=== PATIENT | female | born 1945 | race Caucasian/White ===

== ENCOUNTER 2021-02-26 13:42 | Emergency (ER) | payer OTHER ==
--- OUTSIDE RECORDS SUMMARY | 2021-02-26 13:47 | XMS REPORT | Continuity of Care Document ---
:1945 [facility] Organization [facility] t Address [address] [place] [address] [address]. [address] [place] [address] Care Team Providers Name Role Phone Diane Arzola Primary Care Physician Pradeep LANE, L Attending Clinician Unavailable Augusta Zavala Attending Clinician Teodoro Mosher MD, J Attending Clinician Rishabh Cotter MD Attending Clinician Kofi SANTIAGO Attending Clinician Uzair SANTIAGO P Attending Clinician KOFI Attending Clinician Unavailable MARIELY Attending Clinician Unavailable Kofi SANTIAGO Admitting Clinician KOFI Admitting Clinician Unavailable Payers Payer Name Policy Type Policy Number Effective Date Expiration Date S ource Problems Condition Condition Condition Status Onset Resolution Last Treating Co mments Source Name Details Category Date Date Treatment Clinician Date Hypertensi Hypertensi Disease Active 2020-02 U nivers ve ve 04-17 [place] encephal[place]op [place] at[place] 00 Medical Branch Allergies, Adverse Reactions, Alerts Allergy Allergy Status Severity Reaction(s) Onset Inactive Treating Comm ents Source Name Type Date Date Clinician CLONIDIN DRUG Active High Other-Cmnt 2020-02 Univ ers E INGREDI 04-17 ity of 00:00: [place] 00 Medical Branch Clonidin Propensi Active Other - See 2020-02 Severe U nivers e ty to comments 04-17 drowsines ity o f adverse 00:00: s, [place] reaction 00 previous Medica l s to cardiolog Branch drug ist d/c medicatio n Aspirin Propensi Active Swelling 2020-02 Unive rs ty to 2 ity of adverse 00:00: [place] reaction 00 Medical s Branch ASPIRIN DRUG Active Swelling 2020-02 Univers INGREDI 2- ity of 00:00: [place] 00 Medical Branch NO KNOWN Drug Active Univers ALLERGIE Class ity of S [place] [facility] [place] Social History Social Habit Start Date Stop Date Quantity Comments Source History SDOH University o f Alcohol Frequency [facility] [place] edical Branch History SDOH University o f Alcohol Std [place] [facility] Drinks Branch History SDHI University o f Alcohol Binge [place] [facility] al Branch Exposure to Not sure [facility] SARS-CoV-2 [facility] (event) Branch Tobacco use and 2021-02-14 2021-02-14 Never used Universit y of exposure 00:00:00 00:00:00 [facility] Alcohol intake 2021-02-14 2021-02-14 Ex-drinker University of 00:00:00 00:00:00 (finding) [facility] Alcohol Comment 2021-02-14 2021-02-14 Last drink Universit y of 00:00:00 00:00:00 several years [facility] al ago Branch Sex [birth year] Universit y of 00:00:00 00:00:00 [facility] Smoking Status Start Date Stop Date Source Never smoker [facility] Medications Ordered Filled Start Stop Current Ordering Indication Dosage Frequency Signature Comments Components Source Medication Medication Date Date Medication? Clinician (SIG) Name Name amLODIPine 2020-02- Yes [id number] 10mg Take 1 Univers 10 mg 2-30 -30 tablet by ity of tablet 00:00: 05:59 mouth [place] 00 :00 daily for Medical 30 days. Branch chlorthalid 2020-02- Yes [id number] 25mg Take 1 Univers one 25 mg 2-30 -30 tablet by ity of tablet 00:00: 05:59 mouth [place] 00 :00 daily for Medical 30 days. Branch losartan 50 2020-02- Yes [id number] 50mg Take 1 Univers mg tablet 2-30 -30 tablet by ity of 00:00: 05:59 mouth [place] 00 :00 daily for Medical 30 days. Branch amLODIPine 2020-02- Yes [id number] 10mg Take 1 Univers 10 mg 2-30 -30 tablet by ity of tablet 00:00: 05:59 mouth [place] 00 :00 daily for Medical 30 days. Branch chlorthalid 2020-02- Yes [id number] 25mg Take 1 Univers one 25 mg 2-30 -30 tablet by ity of tablet 00:00: 05:59 mouth [place] 00 :00 daily for Medical 30 days. Branch losartan 50 2020-02- Yes [id number] 50mg Take 1 Univers mg tablet 2-25 03- tablet by ity of 00:00: 05:59 mouth [place] 00 :00 daily for Medical 30 days. Branch cetirizine 2020-02- Yes [id number] 10mg Take 1 Univers 10 mg 2-30 - tablet by ity of tablet 00:00: 05:59 mouth [place] 00 :00 daily for Medical 14 days. Branch cetirizine 2020-02- Yes [id number] 10mg Take 1 Univers 10 mg 2-25 03- tablet by ity of tablet 00:00: 05:59 mouth [place] 00 :00 daily for Medical 14 days. Branch allopurinoL 2020-02 Yes 300mg Take 300 U nivers 300 mg 2-29 mg by ity of tablet 18:40: mouth [place] 30 daily. Medical Branch glimepiride 2020-02 Yes 2mg Take 2 mg U nivers 2 mg tablet 2-29 by mouth 2 it y of 18:40: (two) [place] 30 times Medical daily. Branch carvediloL 2020-02 Yes 25mg Take 25 mg U nivers (COREG) 25 2-29 by mouth 2 ity of mg tablet 18:40: (two) [place] 30 times Medical daily with Branch meals. atorvastati 2020-02 Yes 10mg Take 10 mg Univers n 10 mg 2-29 by mouth ity of tablet 18:40: at [place] 30 bedtime. Medical Branch hydrALAZINE 2020-02 Yes 100mg Take 100 U nivers 100 mg 2-29 mg by ity of tablet 18:40: mouth [place] 30 every 8 Medical (eight) Branch hours. allopurinoL 2020-02 Yes 300mg Take 300 U nivers 300 mg 2-29 mg by ity of tablet 18:40: mouth [place] 30 daily. Medical Branch glimepiride 2020-02 Yes 2mg Take 2 mg U nivers 2 mg tablet 2-29 by mouth 2 it y of 18:40: (two) [place] 30 times Medical daily. Branch carvediloL 2020-02 Yes 25mg Take 25 mg U nivers (COREG) 25 2-29 by mouth 2 ity of mg tablet 18:40: (two) [place] 30 times Medical daily with Branch meals. atorvastati 2020-02 Yes 10mg Take 10 mg Univers n 10 mg 2-29 by mouth ity of tablet 18:40: at [place] 30 bedtime. Medical Branch hydrALAZINE 2020-02 Yes 100mg Take 100 U nivers 100 mg 2-29 mg by ity of tablet 18:40: mouth [place] 30 every 8 Medical (eight) Branch hours. pregabalin 2020-02- No 300mg Take 300 U nivers 300 mg 2-29 12-29 mg by ity of capsule 15:22: 00:00 mouth at [place] 08 :00 bedtime. Medical Branch azilsartan 2020-02- No 1{tbl} Take 1 Un john med-chlorth 2-29 12-29 tablet by it y of alidone 15:22: 00:00 mouth [place] (EDARBYCLOR 08 :00 daily. Medica l ) 40-25 mg Branch Tab labetaloL 2020-02- No 100mg Take 100 Un john 100 mg 2-29 12-29 mg by ity of tablet 15:22: 00:00 mouth [place] 08 :00 every Medical morning. Branch labetaloL 2020-02- No 200mg Take 200 Un john 100 mg 2-29 12-29 mg by ity of tablet 15:22: 00:00 mouth at [place] 08 :00 bedtime. Medical Branch traMADoL 50 2020-02- No 100mg Take 100 Univers mg tablet 2-29 12-29 mg by ity of 15:22: 00:00 mouth 3 [place] 08 :00 (three) Medical times Branch daily as needed for Pain (scale 7-10). olmesartan- 2020-02- No 1{tbl} Take 1 U nivers hydrochloro 2-29 12-29 tablet by it y of thiazide 15:22: 00:00 mouth [place] 40-12.5 mg 08 :00 daily. Medical per tablet Branch doxazosin 4 2020-02- No 4mg Take 4 mg Univers mg tablet -21 02- by mouth ity o f 15:22: 00:00 at [place] 08 :00 bedtime. Medical Branch losartan 2020-02 Yes 50mg 50 mg, Univers (COZAAR) 2- Oral, ity of tablet 50 15:00: DAILY, [place] mg 00 First dose Medical (after Branch last modificati on) on Fri02/21/21 at 0900, Until Discontinu ed, Routine dextrometho 2020-02 Yes [id number] 5mL Take 5 mL Univers rphan-guaif 2-29 by mouth ity of enesin 00:00: every 6 [place] 10-100 mg/5 00 (six) Medical mL solution hours as Bran ch needed for Cough. pregabalin 2020-02 Yes 150mg Take 1 Univ ers 150 mg 2- capsule by ity of capsule 00:00: mouth [place] 00 every 24 Medical (twenty-fo Branch ur) hours. traMADoL 50 2020-02 Yes 50mg Take 1 Univ ers mg tablet 2-29 tablet by ity o f 00:00: mouth [place] 00 every 12 Medical (twelve) Branch hours as needed for Pain (scale 4-6) or Pain (scale 7-10). dextrometho 2020-02 Yes [id number] 5mL Take 5 mL Univers rphan-guaif -29 by mouth ity of enesin 00:00: every 6 [place] 10-100 mg/5 00 (six) Medical mL solution hours as Bran ch needed for Cough. pregabalin 2020-02 Yes 150mg Take 1 Univ ers 150 mg 2-29 capsule by ity of capsule 00:00: mouth [place] 00 every 24 Medical (twenty-fo Branch ur) hours. traMADoL 50 2020-02 Yes 50mg Take 1 Univ ers mg tablet 2-29 tablet by ity o f 00:00: mouth [place] 00 every 12 Medical (twelve) Branch hours as needed for Pain (scale 4-6) or Pain (scale 7-10). benzocaine- 2020-02- Yes [id number] 1{lozen Take 1 Univers menthoL 2-03-04 ge} Lozenge by ity o f lozenge 00:00: 05:59 mouth [place] 00 :00 every 4 Medical (four) Branch hours for 10 days. albuterol 2020-02- Yes [id number] 2{puff} Inhale 2 Univers 90 - Puffs ity of mcg/actuati 00:00: 05:59 every 6 [place] inhaler 00 :00 (six) Medical hours as Branch needed for Wheezing or Shortness of Breath for up to 10 days. benzocaine- 2020-02- Yes [id number] 1{lozen Take 1 Univers menthoL - ge} Lozenge by ity o f lozenge 00:00: 05:59 mouth [place] 00 :00 every 4 Medical (four) Branch hours for 10 days. albuterol 2020-02- Yes [id number] 2{puff} Inhale 2 [facility] 90 - Puffs ity of mcg/actuati 00:00: 05:59 every 6 [place] inhaler 00 :00 (six) Medical hours as Branch needed for Wheezing or Shortness of Breath for up to 10 days. losartan 2020-02- No 25mg 25 mg, Univer s (COZAAR) 04-23- Oral, ity of tablet 25 16:00: 23:13 DAILY, [place] mg 00 :34 First dose Medical on Fri02/20/21 at 1000, Until Discontinu ed, Routine benzocaine- 2020-02 Yes 1{lozen 1 Lozenge, Univers menthoL 04-22 ge} Oral, Q4H, ity of (CEPACOL 15:00: First dose [place] as SORE THROAT 00 (after Medica l (PACO-MEN)) last Branch lozenge 1 modificati Lozenge on) on Fri02/19/21 at 0900, Until Discontinu ed, Routine chlorthalid 2020-02 Yes 25mg 25 mg, Univ ers one 04-22 Oral, ity of (HYGROTON) 15:00: DAILY, [place] tablet 25 00 First dose Medi kary mg (after Branch last modificati on) on Fri02/19/21 at 0900, Until Discontinu ed, Routine losartan 2020-02 No 50mg 50 mg, Univer s (COZAAR) 202-19 Oral, ity of tablet 50 15:00: 15:09 DAILY, [place] mg 00 :38 First dose Medical (after Branch last modificati on) on Fri02/19/21 at 0900, Until Discontinu ed, Routine benzonatate 2020-02 Yes 100mg 100 mg, Un john (TESSALON 2-26 Oral, Q8H, ity of PERLES) 20:00: First dose [place] capsule 100 00 on [facility] Medica l mg 02/18/21 Branch at 1400, Until Discontinu ed, Routine lactated 2020-02- No 500mL at 75 Univer s ringers IV 04-21 mL/hr, 500 it y of infusion 20:00: 12:43 mL, IV [place] 500 mL 00 :32 Infusion, Medical CONTINUOUS Branch , Starting on [facility] 02/18/21 at 1400, Until Fri02/19/21 at 0643, Routine cetirizine 2020-02 Yes 10mg 10 mg, Unive rs (ZYRTEC) 04-21 Oral, ity of tablet 10 19:00: DAILY, [place] mg 00 First dose Medical on [facility] 02/18/21 at 1300, Until Discontinu ed, Routine guaiFENesin 2020-02 Yes 400mg 400 mg, Un john (FENESIN 2- Oral, Q4H, ity o f IR) tablet 18:00: First dose [place] 400 mg 00 on [facility] Medical 02/18/21 Branch at 1200, Until Discontinu ed, Routine ipratropium 2020-02 Yes 3mL 3 mL, Unive rs -albuteroL 04-21 Inhalation ity of (DUONEB) 18:00: , QID, [place] 0.5 mg-3 00 First dose Medic al mg(2.5 mg on [facility] base)/3 mL 02/18/21 nebulizer at 1200, solution 3 Until mL Discontinu ed, Routine benzocaine- 2020-02- No 1{lozen 1 Lozenge, Univers menthoL 04-21 ge} Oral, ity of (CEPACOL 16:29: 14:57 Q4HPRN, [place] SORE THROAT 48 :34 Starting Medi kary (PACO-MEN)) on [facility] lozenge 1 02/18/21 Lozenge at 1029, Until 02/19/21 at 0857, Routine, Sore throat traMADoL 2020-02 Yes 50mg 50 mg, Univers (ULTRAM) 2-25 Oral, ity of tablet 50 14:44: [id number], [place] mg 35 Starting Medical on Fri Branch 02/17/21 at 0844, Until Discontinu ed, Routine, Pain (scale 4-6), Pain (scale 7-10) traMADoL 2020-02 No 50mg 50 mg, Univer s (ULTRAM) 2- 12- Oral, ity of tablet 50 04:15: 04:25 ONCE, 1 [place] mg 00 :00 dose, On Medical Fri Branch 02/16/21 at 2215, Routine pregabalin 2020-02 Yes 150mg 150 mg, Uni vers (LYRICA) 2-25 Oral, Q24H ity o f capsule 150 03:15: ABX, First [place] mg 00 dose Medical (after Branch last modificati on) on Fri02/16/21 at 2115, Until Discontinu ed, Routine metoclopram 2020-02 Yes 10mg 10 mg, IV U nivers naren HCl 04-20 Piggyback, ity of (REGLAN) 10 02:12: Q6HPRN, [place] mg in NaCl 19 Starting Medic al 0.9% (NS) on Fri Branch piggyback 02/16/21 at 2011, Until Discontinu ed, 50 mL hydrALAZINE 2020-02 Yes 50mg 50 mg, Univ ers (APRESOLINE 2-25 Oral, ity of ) tablet 50 02:11: Q6HPRN, [place] mg 42 Starting Medical on Fri Branch 02/16/21 at 2011, Until Discontinu ed, Routine, SBP>180, DBP >110 amLODIPine 2020-02 Yes 10mg 10 mg, Unive rs (NORVASC) 2-24 Oral, ity of tablet 10 20:15: DAILY, [place] mg 00 First dose Medical on Fri Branch 02/16/21 at 1415, Until Discontinu ed, Routine chlorthalid 2020-02 No 25mg 25 mg, Uni vers one 2-24 12- Oral, ity of (HYGROTON) 15:00: 13:50 DAILY, [place] tablet 25 00 :26 First dose Medi kary mg on Fri Branch 02/16/21 at 0900, Until Discontinu ed, Routine losartan 2020-02 No 50mg 50 mg, Univer s (COZAAR) 2-24 12-24 Oral, ity of tablet 50 15:00: 20:07 DAILY, [place] mg 00 :04 First dose Medical on Fri Branch 02/16/21 at 0900, Until Discontinu ed, Routine lactulose 2020-02 Yes 30mL 30 mL, Univer s (CEPHULAC) 2-24 Oral, ity of solution 30 13:36: BIDPRN, [place] mL 15 Starting Medical on Fri Branch 02/16/21 at 0736, Until Discontinu ed, Routine, Constipati on hydrALAZINE 2020-02 No 50mg 50 mg, Uni vers (APRESOLINE 2-24 - Oral, ity of ) tablet 50 05:34: 02:13 Q6HPRN, [place] mg 34 :10 Starting Medical on Fri Branch 02/15/21 at 2334, Until Fri02/16/21 at 2013, Routine, SBP>200 , DBP >100 ondansetron 2020-02 Yes 4mg 4 mg, Slow Univers (ZOFRAN 2-24 IV Push, ity of (PF)) 05:00: Q6HPRN, [place] injection 4 26 Starting Medi kary mg on [facility] Branch 02/15/21 at 2300, Until Discontinu ed, Routine, Nausea and Vomiting (N/V) hydrALAZINE 2020-02 Yes 100mg 100 mg, Un john (APRESOLINE 2-24 Oral, Q8H, it y of ) tablet 04:00: First dose [place] 100 mg 00 on [facility] Medical 02/15/21 Branch at 2200, Until Discontinu ed, Routine sennosides- 2020-02 Yes 1{tbl} 1 tablet, Univers docusate 2- Oral, ity of sodium 15:00: DAILY, [place] (SENOKOT-S) 00 First dose Me dical 8.6-50 mg on [facility] Branch per tablet 02/15/21 1 tablet at 0900, Until Discontinu ed, Routine polyethylen 2020-02 Yes 17g 17 g, Unive rs e glycol 2-23 Oral, ity of 3350 powder 15:00: DAILY, [place] 17 g 00 First dose Medical on [place] Branch 02/15/21 at 0900, Until Discontinu ed, Routine melatonin 2020-02 Yes 6mg 6 mg, Univers (MELATIN) 2-23 Oral, QHS, ity of tablet 6 mg 10:30: First dose [place] 00 on [facility] 02/15/21 Branch at 0430, Until Discontinu ed, Routine atorvastati 2020-02 Yes 10mg 10 mg, Univ ers n (LIPITOR) 2-23 Oral, QHS, it y of tablet 10 03:00: First dose [place] mg 00 on Fri [facility] 02/14/21 Branch at 2100, Until Discontinu ed, Routine carvediloL 2020-02 Yes 25mg 25 mg, Unive rs (COREG) 2- Oral, BID ity of tablet 25 23:45: MEALS, [place] mg 00 First dose Medical on Fri Branch 02/14/21 at 1745, Until Discontinu ed, Routine sulfur 2020-02- No [id number] 5mL 5 mL, Univ ers hexafluorid -02-14 Intravenou i ty of e microsphr 16:15: 16:15 s, ONCE, 1 [place] (LUMASON) 00 :00 dose, On Medica l injection 5 Fri [facility] 02/14/21 at 1015, Routine
wireless team member approving Restricted medication : SHIRLENE OWENS Saline 2020-02 Yes [id number] 6mL 6 mL, Unive rs Bubble 2- Injection, ity of Study 16:06: SEE-INSTRU [place] [facility] Starting Branch on Fri02/14/21 at 1006, Until Discontinu ed, Routine Saline 2020-02 Yes [id number] 6mL 6 mL, Unive rs Bubble 2- Injection, ity of Study 16:05: SEE-INSTRU [place] 57 CTIONS, Medical Starting Branch on Fri02/14/21 at 1005, Until Discontinu ed, Routine allopurinoL 2020-02 Yes 300mg 300 mg, Un john (ZYLOPRIM) 2-22 Oral, ity of tablet 300 15:00: DAILY, [place] mg 00 First dose Medical on [facility] Branch 02/14/21 at 0900, Until Discontinu ed, Routine chlorthalid 2020-02- No 25mg 25 mg, Uni vers one 04-17 Oral, ity of (HYGROTON) 15:00: 00:14 DAILY, [place] tablet 25 00 :42 First dose Medi kary mg on Fri Branch 02/14/21 at 0900, Until Discontinu ed, Routine Sliding 2020-02 Yes Subcutaneo Univ ers Scale - us, TID ity of Insulin - 14:00: MEALS+HS, [place] Lispro 00 First dose Medical (HumaLOG) + on Fri Branch Fsbg 02/14/21 Testing at 0800, Until Discontinu ed, Routine heparin 2020-02 Yes 5000U 5,000 Univers (porcine) 04-17 Units, ity of injection 14:00: Subcutaneo [place] 5,000 Units 00 us, Q12H, Med ical First dose Branch on Fri02/14/21 at 0800, Until Discontinu ed, Routine glucagon 2020-02 Yes 1mg 1 mg, Univers (GLUCAGEN 04-17 Intramuscu ity of DIAGNOSTIC 10:50: lar, PRN, [place] KIT) 25 Starting Medical injection 1 on Fri Branch mg 02/14/21 at 0450, Until Discontinu ed, TULIO, Blood Glucose < or = 70 mg/dL and patient is unable to swallow or has mental changes. dextrose 50 2020-02 Yes 25mL 25 mL, Univ ers % in water 04-17 Slow IV ity of (D50W) 10:50: Push, PRN, [place] injection 25 Starting Medica l 25 mL on Fri Branch 02/14/21 at 0450, Until Discontinu ed, TULIO, Blood Glucose < or = 70 mg/dL and patient is unable to swallow or has mental status changes. magnesium 2020-02- No 2g 2 g, IV Univ ers sulfate in 04-17 Piggyback, it y of water 2 05:45: 06:21 ONCE, 1 [place] gram/50 mL 00 :00 dose, On Medic al (4 %) Tue Branch infusion 2 02/13/21 g at 2345, Routine levoFLOXaci 2020-02- No 750mg 750 mg, IV Univers n in D5W 04-17 Piggyback, ity of (LEVAQUIN) 05:30: 06:15 ONCE, 1 [place] 750 mg/150 00 :00 dose, On Medic al mL Fri Piggyback 02/13/21 750 mg at 2330, Administer over 90 Minutes, 150 mL
Reas on for Anti-Infec tive: Documented Infection< br>Documen tu Infection Site: Urine<br&g t;Duration of Therapy: Other (see Comments) niCARdipine 2020-02- No 5mg/h 5 mg/hr U nivers (CARDENE 04-17 (25 ity of I.V.) 40 mg 04:37: 23:39 mL/hr), IV [place] in NaCL 200 15 :45 Infusion, Med ical mL (RTU) TITRATE, Branch infusion SBP Goal < 180 mmHg, Starting on Fri02/13/21 at 2237
In itiate infusion at 2.5 mg/hr.&nbs p; Ti trate by 2.5 mg/hr every 5 minutes to 15 minutes as needed to achieve and maintain goal blood pressure. Maximum dose = 15 mg/hr. If goal not maintained at maximum allowed dose, contact prescriber .
hydralAZINE 2020-02 No 10mg 10 mg, Uni vers (APRESOLINE 04-17 Slow IV ity of ) injection 03:15: 02:25 [place], [place] 10 mg 00 :00 ONCE, 1 Medical dose, On Branch Fri02/13/21 at 2115, TULIO
In dication: Hypertensi ve Emergency Vital Signs Vital Name Observation Time Observation Value Comments Source Systolic blood 2021-02-21 22:16:00 158 mm[Hg] Univer sity of pressure [facility] Diastolic blood 2021-02-21 22:16:00 71 mm[facility]Hg[facility] Heart rate 2021-02-21 22:16:00 55 /min [facility] Body temperature 2021-02-21 22:16:[address] [facility] Respiratory rate 2021-02-21 22:16:00 21 /min [facility] Oxygen saturation in 2021-02-21 22:16:00 97 /min University Arterial blood by [facility] Pulse oximetry [place] Body height 2021-02-14 01:09:00 170.2 cm [facility] Body weight 2021-02-14 01:09:00 98.884 kg [facility] BMI 2021-02-14 01:09:00 34.14 kg/m2 [facility] Procedures Procedure Date / Time Performing Clinician Source Performed POCT GLUCOSE (AUTOMATED) 2021-02-21 18:42:00 Adelia Kirby [facility] POCT GLUCOSE (AUTOMATED) 2021-02-21 14:03:00 Adelia Kirby [facility] MAGNESIUM 2021-02-21 10:31:00 Lm [facility] BASIC METABOLIC PANEL 2021-02-21 10:31:00 Shahzad Amato [facility] (NA, K, CL, CO2, GLUCOSE, Medica l Branch BUN, CREATININE, CA) CBC WITH DIFF 2021-02-21 10:31:00 Shahzad Amato [facility] POCT GLUCOSE (AUTOMATED) 2021-02-21 04:44:00 [facility] PO[facility] GLUCOSE (AUTOMATED) 2021-02-21 01:48:00 [facility] POCT GLUCOSE (AUTOMATED) 2021-02-20 23:16:00 [facility] POCT GLUCOSE (AUTOMATED) 2021-02-20 18:42:00 Adelia Kirby [facility] SPUTUM CULTURE 2021-02-20 15:34:00 [facility] POCT GLUCOSE (AUTOMATED) 2021-02-20 13:48:00 Adelia Kirby [facility] MAGNESIUM 2021-02-20 12:17:00 Shahzad Amato [facility] BASIC METABOLIC PANEL 2021-02-20 12:17:00 Shahzad Amato [facility] (NA, K, CL, CO2, GLUCOSE, Medica l Branch BUN, CREATININE, CA) CBC WITH DIFF 2021-02-20 12:17:00 Shahzad Amato [facility] POCT GLUCOSE (AUTOMATED) 2021-02-20 03:08:00 Kofi Adelia Macy [facility] POCT GLUCOSE (AUTOMATED) 2021-02-19 23:54:00 TiffanydonnaAdelia [facility] POCT GLUCOSE (AUTOMATED) 2021-02-19 18:07:00 [facility] 2021-02-19 14:32:00 Adelia Kirby [facility] MAGNESIUM 2021-02-19 12:22:00 Shahzad Amato [facility] BASIC METABOLIC PANEL 2021-02-19 12:22:00 Shahzad Amato [facility] (NA, K, CL, CO2, GLUCOSE, Medica l Branch BUN, CREATININE, CA) CBC WITH DIFF 2021-02-19 12:22:00 Shahzad Amato [facility] POCT GLUCOSE (AUTOMATED) 2021-02-19 03:20:00 Adelia Kirby [facility] POCT GLUCOSE (AUTOMATED) 2021-02-18 23:24:00 KofiAdelia [facility] POCT GLUCOSE (AUTOMATED) 2021-02-18 18:34:00 Adelia Kirby [facility] XR CHEST 1 VW 2021-02-18 17:26:00 Shahzad Amato [facility] BLOOD CULTURE SCREEN 2021-02-18 17:17:00 Shahzad Amato [facility] BASIC METABOLIC PANEL 2021-02-18 17:17:00 Nigel Mcdermott [facility] (NA, K, CL, CO2, GLUCOSE, Medica l Branch BUN, CREATININE, CA) CBC WITH DIFF 2021-02-18 17:17:00 Shahzad Amato [facility] PROCALCITONIN 2021-02-18 17:17:00 Kofi [facility] COVID-19 (ID NOW RAPID 2021-02-18 17:17:00 Shahzad Amato [facility] TESTING) Medical Branch LAB ONLY COVID 2021-02-18 17:17:00 Shahzad Amato [facility] BLOOD CULTURE SCREEN 2021-02-18 17:16:00 Shahzad Amato [facility] POCT GLUCOSE (AUTOMATED) 2021-02-18 15:38:00 Adelia Kirby [facility] GALV ONLY - INFLUENZA A B 2021-02-18 14:59:00 [facility] RESPIRATORY PANEL BY PCR 2021-02-18 14:59:00 [facility] GLUCOSE (AUTOMATED) 2021-02-18 13:47:00 [facility] PO[facility] GLUCOSE (AUTOMATED) 2021-02-18 02:29:00 [facility] PO[facility] GLUCOSE (AUTOMATED) 2021-02-17 23:33:00 Adelia Kirby Uni [facility] POCT GLUCOSE (AUTOMATED) 2021-02-17 17:54:00 Rony Cotter Un iversity [facility] POCT GLUCOSE (AUTOMATED) 2021-02-17 14:22:00 Rony Cotter Un iversity of [facility] MAGNESIUM 2021-02-17 11:23[facility]00 [facility] 2021-02-17 11:23:00 Nigel Mcdermott [facility] (NA, K, CL, CO2, GLUCOSE, Medica l Branch BUN, CREATININE, CA) POCT GLUCOSE (AUTOMATED) 2021-02-17 02:32:00 Rony Cotter Un iversity of [facility] POCT GLUCOSE (AUTOMATED) 2021-02-16 23:39:00 Rony Cotter Un iversity of [facility] POCT GLUCOSE (AUTOMATED) 2021-02-16 19:05:00 Rony Cotter Un iversity [facility] MR BRAIN WO CONTRAST 2021-02-16 16:10:45 Omar Leslie [facility] MAGNESIUM 2021-02-16 10:12:00 [facility] BASIC METABOLIC PANEL 2021-02-16 10:12:00 [facility] (NA, K, CL, CO2, GLUCOSE, Medica l Branch BUN, CREATININE, CA) CBC WITH DIFF 2021-02-16 10:12:00 Nigel [facility] N-TERMINAL PRO-BNP 2021-02-16 10:12:00 Adelia Kirby [facility] XR KUB 2021-02-16 06:52:00 BloodAmbrose pinzon [facility] POCT GLUCOSE (AUTOMATED) 2021-02-16 03:24:00 [facility] 2021-02-15 23:48:00 [facility] 2021-02-15 18:00:00 Kamari Dillard [facility] COVID-19 (ID NOW RAPID 2021-02-15 14:25:00 Betzy Harris [facility] TESTING) [facility] Branch LAB ONLY COVID 2021-02-15 14:25:00 Betzy Harris [facility] INTERPRETATION [facility] POCT GLUCOSE (AUTOMATED) 2021-02-15 13:37:00 Kamari Dillard [facility] MAGNESIUM 2021-02-15 10:07:00 Omar Leslie [facility] BASIC METABOLIC PANEL 2021-02-15 10:07:00 Omar Leslie [facility] (NA, K, CL, CO2, GLUCOSE, Medica l Branch BUN, CREATININE, CA) POCT GLUCOSE (AUTOMATED) 2021-02-15 03:11:00 Kamari Dillard [facility] US RENAL WITH DOPPLER 2021-02-14 22:30:00 Omar Leslie [facility] POCT GLUCOSE (AUTOMATED) 2021-02-14 22:02:00 Kamari Dillard [facility] CAROTID DUPLEX BILATERAL 2021-02-14 20:19:00 Omar Leslie [facility] - BY VASCULAR LAB [facility] POCT GLUCOSE (AUTOMATED) 2021-02-14 18:00:00 Kamari Dillard [facility] CREATININE, URINE RANDOM 2021-02-14 16:43:00 Omar Leslie [facility] UREA NITROGEN, URINE 2021-02-14 16:43:00 Omar Leslie [facility] SODIUM, URINE RANDOM 2021-02-14 16:43:00 Betzy Harris [facility] TRANSTHORACIC ECHO (TTE) 2021-02-14 16:05:40 Omar Leslie [facility] COMPLETE W/ CONTRAST Medical [facility] POCT GLUCOSE (AUTOMATED) 2021-02-14 13:37:00 Kamari Dillard [facility] BASIC METABOLIC PANEL 2021-02-14 09:37:00 Omar Leslie [facility] (NA, K, CL, CO2, GLUCOSE, Medica l Branch BUN, CREATININE, CA) LIPID PANEL ([id number])(TOTAL 2021-02-14 09:37:00 Omar Leslie [facility] CHOLESTEROL, [facility] TRIGLYCERIDES, HDL) INTACT PTH CALCIUM GROUP 2021-02-14 09:37:00 Omar Leslie [facility] MRSA / MSSA SCREEN BY 2021-02-14 09:37:00 Omar Leslie [facility] PCR, [facility] TROPONIN I 2021-02-14 05:19:00 Kamari Dillard [facility] CRITICAL CARE 2021-02-14 04:00:00 Kamari Dillard [facility] URINALYSIS 2021-02-14 02:43:00 Kamari Dillard [facility] URINE CULTURE 2021-02-14 02:43:[address] [facility] CT HEAD WO CONTRAST 2021-02-14 01:59:04 [facility] 2021-02-14 01:48:00 Kamari Dillard [facility] MAGNESIUM 2021-02-14 01:48:[address] [facility] TROPONIN I 2021-02-14 01:48:00 Kamari Dillard [facility] COMP. METABOLIC PANEL 2021-02-14 01:48:00 Kamari Dillard [facility] ([id number]) Medical Branch CBC WITH DIFF 2021-02-14 01:48:00 Kamari Dillard [facility] GLYCOSYLATED HEMOGLOBIN 2021-02-14 01:48:00 Omar Leslie [facility] (A1C) Medical Branch COVID-19 (ID NOW RAPID 2021-02-14 01:48:00 Kamari Dillard [facility] TESTING) Medical Branch LAB ONLY COVID 2021-02-14 01:48:00 Kamari Dillard [facility] INTERPRETATION [facility] AC PANEL 21 + LACTIC ACID 2021-02-14 01:46:00 [facility] VW 2021-02-14 01:41:24 Kamari Dillard [facility] BLOOD CULTURE SCREEN 2021-02-14 01:30:00 Kamari Dillard [facility] HB ECG ROUTINE & RHYTHM 2021-02-14 01:15:17 Kamari Dillard [facility] Branch POCT GLUCOSE (AUTOMATED) 2021-02-14 01:11:00 Doctor Jonathon, [facility] Name [facility] NOTICE OF PRIVACY 2021-02-14 00:59:41 Doctor Jonathon [facility] PRACTICES [facility] [place] CONSENT/REFUSAL FOR 2021-02-14 00:59:06 Doctor Jonathon [facility] DIAGNOSIS AND TREATMENT [facility] HOSPITAL ADMISSION 2021-02-13 06:01:00 Doctor Jonathon [facility] Name Medical [place] Encounters Start End Encounter Admission Attending Care Care Encounter Source Date/Time Date/Time Type Type Clinicians Facility Department ID 2021-02-22 2021-02-22 Transition AMY Fernández [id number] 00:00:00 00:00:00 of Care Jaycee COLON [id number] i ty of ADRIA 4.2.7.2.686 Maged leone [id number] [facility] [address] Branch 2021-02-13 2021-02-21 [facility] Kamari Dillard [id number] [facility] 19:16:00 17:30:00 Encounter Ezequiel Valerio 350.1.13. 10 ity [facility] 4.2.7.2. [address] [place] TiffanyJeffryil [id number] [facility] Uzair Sarkis P [address] [place] 2021-02-13 2021-02-21 Inpatient X [facility] [id number] [facility] 19:16:00 17:30:00 [facility] 2021-01-26 Outpatient [facility] [id number] [place] 00:00:00 00:00:00 LAURA Miner Method i st Results Test Description Test Time Test Comments Results Result Comments Source POCT GLUCOSE (AUTOMATED) 2021-02-21 18:43:55 Test Item Value Reference Range Interpretation Comme nts POCT GLU (test code = 5146107602) 227 mg/dL 70-110 H Lab Interpretation (test code = 66664-8) [facility] 14:05:18 Test Item Value Reference Range Interpretation Comments POCT GLU (test code = 2964879391) 159 mg/dL 70-110 H Lab Interpretation (test code = Abnormal 80154-8) [facility] 12:25:40 Test Item Value Reference Range Interpretation Comments MAGNESIUM (test code = 7382701186) 2.0 mg/dL 1.7-2.4 Lab Interpretation (test code = Normal 92461-5) [facility] (NA, K, CL, CO2, GLUCOSE, BUN, CREATININE, CA)2021-02-21 12:08:19 Test Item Value Reference Range Interpretation Comments NA (test code = 140 mmol/L 135-145 1273186442) K (test code = 4.6 mmol/L 3.5-5.0 5734598242) CL (test code = 110 mmol/L 98-108 H 5860345150) CO2 TOTAL (test code = 22 mmol/L 23-31 L 4044282246) AGAP (test code = 2-16 6264270318) BUN (test code = 67 mg/dL 7-23 H 0795431258) GLUCOSE (test code = 132 mg/dL 70-110 H 2294654158) CREATININE (test code = 2.36 mg/dL 0.50-1.04 H 9396106755) CALCIUM (test code = 8.8 mg/dL 8.6-10.6 2521383555) eGFR (test code = mL/min/1.73m2 5692516519) XAVIER (test code = XAVIER) Association of Glomerular Filtration Rate (GFR) and Staging of Kidney Disease* + --+ --+ ------+| GFR (mL/min/1.73 m2) ?| With Kidney Damage ?| ?Without Kidney Damage+ --------+ --------+ +| ?>90 ?| ?Stage one ?| ? Normal ?+ ---+ ---+ -------+| ?60-89 ?| ?Stage two ?| ? Decreased GFR ? + --+ --+ ------+| ?30-59 ?| ?Stage three ?| ? Stage three ? + --+ --+ ------+| ?15-29 ?| ?Stage four ? | ? Stage four ?+ ---+ ---+ -------+| ?<15 (or dialysis) ? ?| ?Stage five ? | ? Stage five ?+ ---+ ---+ -------+ *Each stage assumes the associated GFR level has been in effect for at least three months. ?Stages 1 to 5, with or without kidney disease, indicate chronic kidney disease. Notes: Determination of stages one and two (with eGFR >59mL/min/1.73 m2) requires estimation of kidney damage for at least three months as defined by structural or functional abnormalities of the kidney, manifested by either:Pathological abnormalities or Markers of kidney damage (including abnormalities in the composition of the blood or urine or abnormalities in imaging tests). Lab Interpretation Abnormal (test code = 46835-4) [facility] WITH [id number] 11:40:58 Test Item Value Reference Range Interpretation Comments WBC (test code = See_Comment [Automated 1290-2) message] The sy stem which generated this result transmitted reference range : 4.30 - 11.10 10*3/?L. The reference range was not used to interpret this result as normal/abnormal . RBC (test code = See_Comment [Automated 789-8) message] The sy stem which generated this result transmitted reference range : 3.93 - 5.25 10*6/?L. The reference range was not used to interpret this result as normal/abnormal . HGB (test code = 11.0 g/dL 11.6-15.0 L 718-7) HCT (test code = 34.4 % 35.7-45.2 L 4544-3) MCV (test code = 87.3 fL 80.6-95.5 787-2) MCH (test code = 27.9 pg 25.9-32.8 785-6) MCHC (test code = 32.0 g/dL 31.6-35.1 786-4) RDW-SD (test code = 49.1 fL 39.0-49.9 00304-0) RDW-CV (test code = 15.2 % 12.0-15.5 788-0) PLT (test code = See_Comment L [Automated 777-3) message] The sy stem which generated this result transmitted reference range : 166 - 358 10*3/ ?L. The reference r bill was not used to interpret this result as normal/abnormal . MPV (test code = 12.0 fL 9.5-12.9 38459-3) NRBC/100 WBC (test See_Comment [Automat ed code = 6173039839) message] The system which generated this result transmitted reference range : 0.0 - 10.0 /100 WBCs. The refer ence range was not u sed to interpret th is result as normal/abnormal . NRBC x10^3 (test code <0.01 See_Comment [Auto mated = 4704746075) message] The s ystem which generated this result transmitted reference range : 10*3/?L. The reference range was not used to interpret this result as normal/abnormal . GRAN MAT (NEUT) % 60.5 % (test code = 770-8) IMM GRAN % (test code 1.30 % = 0587081801) LYMPH % (test code = 19.2 % 736-9) MONO % (test code = 8.7 % 5905-5) EOS % (test code = 9.4 % 713-8) BASO % (test code = 0.9 % 706-2) GRAN MAT x10^3(ANC) 2.78 10*3/uL 1.88-7.09 (test code = 1952644541) IMM GRAN x10^3 (test 0.06 10*3/uL 0.00-0.06 code = 4027346596) LYMPH x10^3 (test code 0.88 10*3/uL 1.32-3.29 L = 731-0) MONO x10^3 (test code 0.40 10*3/uL 0.33-0.92 = 742-7) EOS x10^3 (test code = 0.43 10*3/uL 0.03-0.39 H 711-2) BASO x10^3 (test code 0.04 10*3/uL 0.01-0.07 = 704-7) GIANT PLATELETS (test Present See_Comment A [Auto mated code = 5908-9) message] The system which generated this result transmitted reference range : (none). The reference range was not used to interpret this result as normal/abnormal . Lab Interpretation Abnormal (test code = 86640-2) [facility] GLUCOSE (AUTOMATED)2021-02-21 04:45:18 Test Item Value Reference Range Interpretation Comments POCT GLU (test code = 5872864205) 143 mg/dL 70-110 H Lab Interpretation (test code = Abnormal 66232-5) [facility] GLUCOSE (AUTOMATED)2021-02-21 01:49:49 Test Item Value Reference Range Interpretation Comments POCT GLU (test code = 4721215740) 246 mg/dL 70-110 H Lab Interpretation (test code = Abnormal 23327-8) [facility] GLUCOSE (AUTOMATED)2021-02-20 23:17:01 Test Item Value Reference Range Interpretation Comments POCT GLU (test code = 2296605159) 204 mg/dL 70-110 H Lab Interpretation (test code = Abnormal 42690-5) [facility] GLUCOSE (AUTOMATED)2021-02-20 18:44:06 Test Item Value Reference Range Interpretation Comments POCT GLU (test code = 4569813493) 270 mg/dL 70-110 H Lab Interpretation (test code = Abnormal 67156-2) [facility]2021-02-20 13:51:26 Test Item Value Reference Range Interpretation Comments POCT GLU (test code = 5516184150) 165 mg/dL 70-110 H Lab Interpretation (test code = Abnormal 22085-0) [facility] METABOLIC PANEL (NA, K, CL, CO2, GLUCOSE, BUN, CREATININE, CA)2021-02-20 13:33:31 Test Item Value Reference Range Interpretation Comments NA (test code = 138 mmol/L 135-145 6739608477) K (test code = 4.2 mmol/L 3.5-5.0 7272444476) CL (test code = 109 mmol/L 98-108 H 0623302290) CO2 TOTAL (test code = 20 mmol/L 23-31 L 5823014418) AGAP (test code = 2-16 2458689255) BUN (test code = 71 mg/dL 7-23 H 5655082560) GLUCOSE (test code = 133 mg/dL 70-110 H 1354176984) CREATININE (test code = 2.58 mg/dL 0.50-1.04 H 2112988522) CALCIUM (test code = 8.8 mg/dL 8.6-10.6 2834597908) eGFR (test code = mL/min/1.73m2 3144241842) XAVIER (test code = XAVIER) Association of Glomerular Filtration Rate (GFR) and Staging of Kidney Disease* + --+ --+ ------+| GFR (mL/min/1.73 m2) ?| With Kidney Damage ?| ?Without Kidney Damage+ --------+ --------+ +| ?>90 ?| ?Stage one ?| ? Normal ?+ ---+ ---+ -------+| ?60-89 ?| ?Stage two ?| ? Decreased GFR ? + --+ --+ ------+| ?30-59 ?| ?Stage three ?| ? Stage three ? + --+ --+ ------+| ?15-29 ?| ?Stage four ? | ? Stage four ?+ ---+ ---+ -------+| ?<15 (or dialysis) ? ?| ?Stage five ? | ? Stage five ?+ ---+ ---+ -------+ *Each stage assumes the associated GFR level has been in effect for at least three months. ?Stages 1 to 5, with or without kidney disease, indicate chronic kidney disease. Notes: Determination of stages one and two (with eGFR >59mL/min/1.73 m2) requires estimation of kidney damage for at least three months as defined by structural or functional abnormalities of the kidney, manifested by either:Pathological abnormalities or Markers of kidney damage (including abnormalities in the composition of the blood or urine or abnormalities in imaging tests). Lab Interpretation Abnormal (test code = 86439-4) [facility] 13:33:31 Test Item Value Reference Range Interpretation Comments MAGNESIUM (test code = 9633172977) 2.0 mg/dL 1.7-2.4 Lab Interpretation (test code = Normal 13269-6) [facility] WITH [id number] 12:53:29 Test Item Value Reference Range Interpretation Comments WBC (test code = See_Comment [Automated 9490-2) message] The sy stem which generated this result transmitted reference range : 4.30 - 11.10 10*3/?L. The reference range was not used to interpret this result as normal/abnormal . RBC (test code = See_Comment [Automated 049-8) message] The sy stem which generated this result transmitted reference range : 3.93 - 5.25 10*6/?L. The reference range was not used to interpret this result as normal/abnormal . HGB (test code = 11.6 g/dL 11.6-15.0 718-7) HCT (test code = 37.1 % 35.7-45.2 4544-3) MCV (test code = 87.5 fL 80.6-95.5 787-2) MCH (test code = 27.4 pg 25.9-32.8 785-6) MCHC (test code = 31.3 g/dL 31.6-35.1 L 786-4) RDW-SD (test code = 49.0 fL 39.0-49.9 09886-6) RDW-CV (test code = 15.3 % 12.0-15.5 788-0) PLT (test code = See_Comment [Automated 777-3) message] The sy stem which generated this result transmitted reference range : 166 - 358 10*3/ ?L. The reference r bill was not used to interpret this result as normal/abnormal . MPV (test code = 12.1 fL 9.5-12.9 09011-9) NRBC/100 WBC (test See_Comment [Automat ed code = 1665919742) message] The system which generated this result transmitted reference range : 0.0 - 10.0 /100 WBCs. The refer ence range was not u sed to interpret th is result as normal/abnormal . NRBC x10^3 (test code <0.01 See_Comment [Auto mated = 3495771689) message] The s ystem which generated this result transmitted reference range : 10*3/?L. The reference range was not used to interpret this result as normal/abnormal . GRAN MAT (NEUT) % 64.3 % (test code = 770-8) IMM GRAN % (test code 0.60 % = 8025216357) LYMPH % (test code = 18.8 % 736-9) MONO % (test code = 8.0 % 5905-5) EOS % (test code = 7.7 % 713-8) BASO % (test code = 0.6 % 706-2) GRAN MAT x10^3(ANC) 4.02 10*3/uL 1.88-7.09 (test code = 7954947366) IMM GRAN x10^3 (test 0.04 10*3/uL 0.00-0.06 code = 8801853320) LYMPH x10^3 (test code 1.18 10*3/uL 1.32-3.29 L = 731-0) MONO x10^3 (test code 0.50 10*3/uL 0.33-0.92 = 742-7) EOS x10^3 (test code = 0.48 10*3/uL 0.03-0.39 H 711-2) BASO x10^3 (test code 0.04 10*3/uL 0.01-0.07 = 704-7) Lab Interpretation Abnormal (test code = 35757-7) [facility] GLUCOSE (AUTOMATED)2021-02-20 03:09:05 Test Item Value Reference Range Interpretation Comments POCT GLU (test code = 5486846977) 206 mg/dL 70-110 H Lab Interpretation (test code = Abnormal 03238-6) [facility] GLUCOSE (AUTOMATED)2021-02-19 23:55:29 Test Item Value Reference Range Interpretation Comments POCT GLU (test code = 8637985963) 155 mg/dL 70-110 H Lab Interpretation (test code = Abnormal 94488-7) [facility] GLUCOSE (AUTOMATED)2021-02-19 18:08:17 Test Item Value Reference Range Interpretation Comments POCT GLU (test code = 0736529397) 296 mg/dL 70-110 H Lab Interpretation (test code = Abnormal 29742-2) [facility] GLUCOSE (AUTOMATED)2021-02-19 14:33:11 Test Item Value Reference Range Interpretation Comments POCT GLU (test code = 3669709151) 164 mg/dL 70-110 H Lab Interpretation (test code = Abnormal 54487-3) [facility] METABOLIC PANEL (NA, K, CL, CO2, GLUCOSE, BUN, CREATININE, CA)2021-02-19 13:15:21 Test Item Value Reference Range Interpretation Comments NA (test code = 135 mmol/L 135-145 5508006855) K (test code = 4.2 mmol/L 3.5-5.0 3929965877) CL (test code = 105 mmol/L 98-108 9582443226) CO2 TOTAL (test code = 24 mmol/L 23-31 2124204331) AGAP (test code = 2-16 9496590483) BUN (test code = 70 mg/dL 7-23 H 8484069341) GLUCOSE (test code = 160 mg/dL 70-110 H 8349013356) CREATININE (test code = 2.81 mg/dL 0.50-1.04 H 6862704676) CALCIUM (test code = 8.9 mg/dL 8.6-10.6 7173582561) eGFR (test code = mL/min/1.73m2 6845169352) AXVIER (test code = XAVIER) Association of Glomerular Filtration Rate (GFR) and Staging of Kidney Disease* + --+ --+ ------+| GFR (mL/min/1.73 m2) ?| With Kidney Damage ?| ?Without Kidney Damage+ --------+ --------+ +| ?>90 ?| ?Stage one ?| ? Normal ?+ ---+ ---+ -------+| ?60-89 ?| ?Stage two ?| ? Decreased GFR ? + --+ --+ ------+| ?30-59 ?| ?Stage three ?| ? Stage three ? + --+ --+ ------+| ?15-29 ?| ?Stage four ? | ? Stage four ?+ ---+ ---+ -------+| ?<15 (or dialysis) ? ?| ?Stage five ? | ? Stage five ?+ ---+ ---+ -------+ *Each stage assumes the associated GFR level has been in effect for at least three months. ?Stages 1 to 5, with or without kidney disease, indicate chronic kidney disease. Notes: Determination of stages one and two (with eGFR >59mL/min/1.73 m2) requires estimation of kidney damage for at least three months as defined by structural or functional abnormalities of the kidney, manifested by either:Pathological abnormalities or Markers of kidney damage (including abnormalities in the composition of the blood or urine or abnormalities in imaging tests). Lab Interpretation Abnormal (test code = 92703-2) [facility] 13:15:21 Test Item Value Reference Range Interpretation Comments MAGNESIUM (test code = 5082856265) 1.8 mg/dL 1.7-2.4 Lab Interpretation (test code = Normal 07406-9) [facility] WITH [id number] 12:48:34 Test Item Value Reference Range Interpretation Comments WBC (test code = See_Comment [Automated 7130-2) message] The sy stem which generated this result transmitted reference range : 4.30 - 11.10 10*3/?L. The reference range was not used to interpret this result as normal/abnormal . RBC (test code = See_Comment [Automated 335-8) message] The sy stem which generated this result transmitted reference range : 3.93 - 5.25 10*6/?L. The reference range was not used to interpret this result as normal/abnormal . HGB (test code = 11.4 g/dL 11.6-15.0 L 718-7) HCT (test code = 35.1 % 35.7-45.2 L 4544-3) MCV (test code = 86.7 fL 80.6-95.5 787-2) MCH (test code = 28.1 pg 25.9-32.8 785-6) MCHC (test code = 32.5 g/dL 31.6-35.1 786-4) RDW-SD (test code = 48.4 fL 39.0-49.9 21303-4) RDW-CV (test code = 15.2 % 12.0-15.5 788-0) PLT (test code = See_Comment [Automated 777-3) message] The sy stem which generated this result transmitted reference range : 166 - 358 10*3/ ?L. The reference r bill was not used to interpret this result as normal/abnormal . MPV (test code = 12.1 fL 9.5-12.9 56134-7) NRBC/100 WBC (test See_Comment [Automat ed code = 5437560207) message] The system which generated this result transmitted reference range : 0.0 - 10.0 /100 WBCs. The refer ence range was not u sed to interpret th is result as normal/abnormal . NRBC x10^3 (test code <0.01 See_Comment [Auto mated = 5016856319) message] The s ystem which generated this result transmitted reference range : 10*3/?L. The reference range was not used to interpret this result as normal/abnormal . GRAN MAT (NEUT) % 74.6 % (test code = 770-8) IMM GRAN % (test code 0.90 % = 2713483319) LYMPH % (test code = 12.1 % 736-9) MONO % (test code = 7.2 % 5905-5) EOS % (test code = 4.5 % 713-8) BASO % (test code = 0.7 % 706-2) GRAN MAT x10^3(ANC) 4.97 10*3/uL 1.88-7.09 (test code = 3259873863) IMM GRAN x10^3 (test 0.06 10*3/uL 0.00-0.06 code = 7215160839) LYMPH x10^3 (test code 0.81 10*3/uL 1.32-3.29 L = 731-0) MONO x10^3 (test code 0.48 10*3/uL 0.33-0.92 = 742-7) EOS x10^3 (test code = 0.30 10*3/uL 0.03-0.39 711-2) BASO x10^3 (test code 0.05 10*3/uL 0.01-0.07 = 704-7) Lab Interpretation Abnormal (test code = 36037-0) [facility] GLUCOSE (AUTOMATED)2021-02-19 03:21:43 Test Item Value Reference Range Interpretation Comments POCT GLU (test code = 1837036037) 235 mg/dL 70-110 H Lab Interpretation (test code = Abnormal 77483-9) [facility] CULTURE [id number] 03:01:37 Test Item Value Reference Range Interpretation Comments Blood Culture-Aerobic No organisms No growth Previo us (test code = 90158-3) isolated prelim inary verified result was Culture In Progress on 02/14/2021 at 0001 CSTPreviou s preliminary verified result was No growth a t 24 hours on 02/14/2021 at 2100 CSTPreviou s preliminary verified result was No growth a t 48 hours on 02/15/2021 at 2100 CSTPreviou s preliminary verified result was No growth a t 72 hours on 02/16/2021 at 210 [employer] INTELLIGENCE TECHNICIAN Blood No organisms No growth Previous Culture-Anaerobic isolated preliminar y (test code = 42906-3) verifi ed result was Culture In Progress on 02/14/2021 at 0001 CSTPreviou s preliminary verified result was No growth a t 24 hours on 02/14/2021 at 2100 CSTPreviou s preliminary verified result was No growth a t 48 hours on 02/15/2021 at 210 CSTPreviou s preliminary verified result was No growth a t 72 hours on 02/16/2021 at 210 AREA INTELLIGENCE TECHNICIAN Lab Interpretation Normal (test code = 24762-7) [facility] CULTURE [id number] 03:01:37 Test Item Value Reference Range Interpretation Comments Blood Culture-Aerobic No organisms No growth Previo us (test code = 44989-9) isolated prelim inary verified result was Culture In Progress on 02/14/2021 at 0001 CSTPreviou s preliminary verified result was No growth a t 24 hours on 02/14/2021 at 2101 CSTPreviou s preliminary verified result was No growth a t 48 hours on 02/15/2021 at 2101 CSTPreviou s preliminary verified result was No growth a t 72 hours on 02/16/2021 at 2101 AREA INTELLIGENCE TECHNICIAN Blood No organisms No growth Previous Culture-Anaerobic isolated preliminar y (test code = 55491-4) verifi ed result was Culture In Progress on 02/14/2021 at 0001 CSTPreviou s preliminary verified result was No growth a t 24 hours on 02/14/2021 at 2101 CSTPreviou s preliminary verified result was No growth a t 48 hours on 02/15/2021 at 2101 CSTPreviou s preliminary verified result was No growth a t 72 hours on 02/16/2021 at 2101 ARE[employer] INTELLIGENCE TECHNICIAN Lab Interpretation Normal (test code = 69288-4) [facility] 23:26:44 Test Item Value Reference Range Interpretation Comments POCT GLU (test code = 1290052544) 193 mg/dL 70-110 H Lab Interpretation (test code = Abnormal 15974-7) [facility] BY [id number] 21:34:23 Test Item Value Reference Range Interpretation Comments Adenovirus (test code = Negative Negative 81108-2) Coronavirus HKU1 (test Negative Negative code = 90908-8) Coronavirus NL63 (test Negative Negative code = 27317-3) Coronavirus 229E (test Negative Negative code = 04403-2) Coronavirus OC43 (test Negative Negative code = 14419-3) Human Metapneumovirus Positive Negative A (test code = 36221-0) Human Negative Negative Rhinovirus/Enterovirus (test code = 12784-1) Influenza A (test code = Negative Negative 57682-7) Influenza B (test code = Negative Negative 14688-5) Parainfluenza Virus 1 Negative Negative (test code = 21430-8) Parainfluenza Virus 2 Negative Negative (test code = 65436-9) Parainfluenza Virus 3 Negative Negative (test code = 58326-9) Parainfluenza Virus 4 Negative Negative (test code = 98786-1) Respiratory Syncytial Negative Negative Virus (test code = 16791-3) Bordetella parapertussis Negative Negative (test code = 35641-8) Bordetella pertussis Negative Negative (test code = 41581-6) Chlamydia pneumoniae Negative Negative (test code = 37417-5) Mycoplasma pneumoniae Negative Negative (test code = 35291-1) XAVIER (test code = XAVIER) Negative:A negative result does not rule-out infection. ?This assay does not test for all potential infectious agents. ? Positive:A positive test result does not necessarily indicate the presence of viable organism. ? Lab Interpretation (test Abnormal code = 09266-2) [facility]:03[facility]55 Test Item Value Reference Range Interpretation Comments Procalcitonin (test 0.10 ng/mL <0.07 H code = 8391617706) XAVIER (test code = XAVIER) INTERPRETATION OF PROCALCITONIN RESULTS IN ADULTS >= 18 YEARS OF AGE Initiation and discontinuation of antibiotics on patients with suspected or confirmed Lower Respiratory Tract Infection in Adults >= 18 years of age. + +-------- --------+ + -----+|Procalcitonin |Interpretation ?|Antibiotic ? ? |Considerations ? |ng/mL ? | ?|recommendation | ? + +-------- --------+ + -----+| <0.1 ? | Bacterial ? ? ?| Strongly ? ? ?| ? | ?| infection very | discouraged ? | Overruling: ? | ?| unlikely ? ? ? | ? | ? Clinically unstable ? ? ? + +-------- --------+ + ? High risk for adverse ? ? | <0.25 ?| Bacterial ? ? ?| Discouraged ? | ? outcome ? | ?| infection ? ? ?| ? | ? SEE IMPORTANT NOTE ?| ?| unlikely ? ? ? | ? | ? + +-------- --------+ + -----+| >=0.25 ? ? ? | Bacterial ? ? ?| Encouraged ? ?| ? | ?| infection ? ? ?| ? | ? | ?| likely ? | ? | Consider treatment failure ?+ +------- ---------+ -+ if levels does not decrease | >0.5 ? | Bacterial ? ? ?| Strongly ? ? ?| appropriately ? | ?| infection very | encouraged ? ?| ? | ?| likely ? | ? | ? + +-------- --------+ + -----+ Discontinuation of antibiotics in high-acuity patients with suspected or confirmed sepsis in Adults >= 18 years of age. + +-------- --------+ + -----+|Procalcitonin |Interpretation ?|Antibiotic ? ? |Considerations ? |ng/mL ? | ?|recommendation | ? + +-------- --------+ + -----+| <0.25 ?| Bacterial ? ? ?| Strongly ? ? ?| ? | ?| infection very | discouraged ? | Overruling: ? | ?| unlikely ? ? ? | ? | ? Clinically unstable ? ? ? + +-------- --------+ + ? High risk for adverse ? ? | <0.5 or drop | Bacterial ? ? ?| Discouraged ? | ? outcome ? | >80% from ? ?| infection ? ? ?| ? | ? SEE IMPORTANT NOTE ?| highest PCT ?| unlikely ? ? ? | ? | ? | level ?| ?| ? | ? + +-------- --------+ + -----+| >=0.5 ?| Bacterial ? ? ?| Encouraged ? ?| ? | ?| infection ? ? ?| ? | ? | ?| likely ? | ? | Consider treatment failure ?+ +------- ---------+ -+ if levels does not decrease | >1.0 ? | Bacterial ? ? ?| Strongly ? ? ?| appropriately ? | ?| infection very | encouraged ? ?| ? | ?| likely ? | ? | ? + +-------- --------+ + -----+ Percentage of drop of Procalcitonin calculation for Discontinuation of antibiotics in high-acuity patients with suspected or confirmed sepsis in Adults >= 18 years of age. ? Procalcitonin highest{}-Procalcitonin current{}Delta Procalcitonin = x100% ? Procalcitonin current {} IMPORTANT NOTE: Procalcitonin may be elevated without bacterial infection by physiologic stress related to trauma, hartman, chronic dialysis, metastatic cancer, surgery in the past seven days, malaria, some fungal infections, and some forms of vasculitis. The interpretation algorithm may not apply to patients with immunosuppression (equivalent of >10 mg of prednisone daily), HIV with CD4 cell count < 350 cells/mm3, active malignancy on systemic chemotherapy, solid organ transplant or hematopoietic stem cell transplantation, or hospital acquired pneumonia. Additionally, some clinical trials of procalcitonin have excluded patients with shock requiring vasopressor use, acute respiratory failure requiring mechanical ventilation, or those with known lung abscess/empyema. For further information please refer to:[email or web address] Lab Interpretation Abnormal (test code = 76315-5) [facility] 18:45:36 Test Item Value Reference Range Interpretation Comments POCT GLU (test code = 1976836738) 348 mg/dL 70-110 H Lab Interpretation (test code = Abnormal 90162-3) [facility] (NA, K, CL, CO2, GLUCOSE, BUN, CREATININE, CA)2021-02-18 18:11:33 Test Item Value Reference Range Interpretation Comments NA (test code = 135 mmol/L 135-145 5552840061) K (test code = 3.9 mmol/L 3.5-5.0 6646527171) CL (test code = 104 mmol/L 98-108 6910982370) CO2 TOTAL (test code = 24 mmol/L 23-31 6155528643) AGAP (test code = 2-16 6111568245) BUN (test code = 60 mg/dL 7-23 H 5725587095) GLUCOSE (test code = 277 mg/dL 70-110 H 3760720903) CREATININE (test code = 2.93 mg/dL 0.50-1.04 H 1473790030) CALCIUM (test code = 8.8 mg/dL 8.6-10.6 2036983080) eGFR (test code = mL/min/1.73m2 7279942180) XAVIER (test code = XAVIER) Association of Glomerular Filtration Rate (GFR) and Staging of Kidney Disease* + --+ --+ ------+| GFR (mL/min/1.73 m2) ?| With Kidney Damage ?| ?Without Kidney Damage+ --------+ --------+ +| ?>90 ?| ?Stage one ?| ? Normal ?+ ---+ ---+ -------+| ?60-89 ?| ?Stage two ?| ? Decreased GFR ? + --+ --+ ------+| ?30-59 ?| ?Stage three ?| ? Stage three ? + --+ --+ ------+| ?15-29 ?| ?Stage four ? | ? Stage four ?+ ---+ ---+ -------+| ?<15 (or dialysis) ? ?| ?Stage five ? | ? Stage five ?+ ---+ ---+ -------+ *Each stage assumes the associated GFR level has been in effect for at least three months. ?Stages 1 to 5, with or without kidney disease, indicate chronic kidney disease. Notes: Determination of stages one and two (with eGFR >59mL/min/1.73 m2) requires estimation of kidney damage for at least three months as defined by structural or functional abnormalities of the kidney, manifested by either:Pathological abnormalities or Markers of kidney damage (including abnormalities in the composition of the blood or urine or abnormalities in imaging tests). Lab Interpretation Abnormal (test code = 44904-7) [facility] WITH [id number] 17:27:32 Test Item Value Reference Range Interpretation Comments WBC (test code = See_Comment [Automated 6690-2) message] The sy stem which generated this result transmitted reference range : 4.30 - 11.10 10*3/?L. The reference range was not used to interpret this result as normal/abnormal . RBC (test code = See_Comment [Automated 789-8) message] The sy stem which generated this result transmitted reference range : 3.93 - 5.25 10*6/?L. The reference range was not used to interpret this result as normal/abnormal . HGB (test code = 11.1 g/dL 11.6-15.0 L 718-7) HCT (test code = 35.1 % 35.7-45.2 L 4544-3) MCV (test code = 88.9 fL 80.6-95.5 787-2) MCH (test code = 28.1 pg 25.9-32.8 785-6) MCHC (test code = 31.6 g/dL 31.6-35.1 786-4) RDW-SD (test code = 49.5 fL 39.0-49.9 32742-7) RDW-CV (test code = 15.4 % 12.0-15.5 788-0) PLT (test code = See_Comment [Automated 777-3) message] The sy stem which generated this result transmitted reference range : 166 - 358 10*3/ ?L. The reference r bill was not used to interpret this result as normal/abnormal . MPV (test code = 11.7 fL 9.5-12.9 02889-6) NRBC/100 WBC (test See_Comment [Automat ed code = 2374452716) message] The system which generated this result transmitted reference range : 0.0 - 10.0 /100 WBCs. The refer ence range was not u sed to interpret th is result as normal/abnormal . NRBC x10^3 (test code <0.01 See_Comment [Auto mated = 1837770996) message] The s ystem which generated this result transmitted reference range : 10*3/?L. The reference range was not used to interpret this result as normal/abnormal . GRAN MAT (NEUT) % 71.1 % (test code = 770-8) IMM GRAN % (test code 0.50 % = 6662596767) LYMPH % (test code = 16.3 % 736-9) MONO % (test code = 7.9 % 5905-5) EOS % (test code = 3.4 % 713-8) BASO % (test code = 0.8 % 706-2) GRAN MAT x10^3(ANC) 4.58 10*3/uL 1.88-7.09 (test code = 6925337896) IMM GRAN x10^3 (test 0.03 10*3/uL 0.00-0.06 code = 9364325031) LYMPH x10^3 (test code 1.05 10*3/uL 1.32-3.29 L = 731-0) MONO x10^3 (test code 0.51 10*3/uL 0.33-0.92 = 742-7) EOS x10^3 (test code = 0.22 10*3/uL 0.03-0.39 711-2) BASO x10^3 (test code 0.05 10*3/uL 0.01-0.07 = 704-7) Lab Interpretation Abnormal (test code = 99383-9) [facility] GLUCOSE (AUTOMATED)2021-02-18 15:42:23 Test Item Value Reference Range Interpretation Comments POCT GLU (test code = 0829159018) 138 mg/dL 70-110 H Lab Interpretation (test code = Abnormal 84875-6) [facility] GLUCOSE (AUTOMATED)2021-02-18 13:48:32 Test Item Value Reference Range Interpretation Comments POCT GLU (test code = 9112408132) 137 mg/dL 70-110 H Lab Interpretation (test code = Abnormal 91998-7) [facility] GLUCOSE (AUTOMATED)2021-02-18 02:30:01 Test Item Value Reference Range Interpretation Comments POCT GLU (test code = 4879328073) 224 mg/dL 70-110 H Lab Interpretation (test code = Abnormal 83944-5) [facility] GLUCOSE (AUTOMATED)2021-02-17 23:36:44 Test Item Value Reference Range Interpretation Comments POCT GLU (test code = 1876362246) 139 mg/dL 70-110 H Lab Interpretation (test code = Abnormal 27540-6) [facility] GLUCOSE (AUTOMATED)2021-02-17 17:55:16 Test Item Value Reference Range Interpretation Comments POCT GLU (test code = 0887324548) 225 mg/dL 70-110 H Lab Interpretation (test code = Abnormal 36642-4) [facility] GLUCOSE (AUTOMATED)2021-02-17 14:23:39 Test Item Value Reference Range Interpretation Comments POCT GLU (test code = 2354220460) 151 mg/dL 70-110 H Lab Interpretation (test code = Abnormal 21700-8) [facility] METABOLIC PANEL (NA, K, CL, CO2, GLUCOSE, BUN, CREATININE, CA)2021-02-17 12:13:17 Test Item Value Reference Range Interpretation Comments NA (test code = 140 mmol/L 135-145 3986996249) K (test code = 3.6 mmol/L 3.5-5.0 7328386258) CL (test code = 109 mmol/L 98-108 H 4914792121) CO2 TOTAL (test code = 25 mmol/L 23-31 9332975019) AGAP (test code = 2-16 8550232568) BUN (test code = 54 mg/dL 7-23 H 4651513518) GLUCOSE (test code = 115 mg/dL 70-110 H 2931623908) CREATININE (test code = 2.65 mg/dL 0.50-1.04 H 7370480011) CALCIUM (test code = 9.2 mg/dL 8.6-10.6 5322551555) eGFR (test code = mL/min/1.73m2 3640473462) XAVIER (test code = XAVIER) Association of Glomerular Filtration Rate (GFR) and Staging of Kidney Disease* + --+ --+ ------+| GFR (mL/min/1.73 m2) ?| With Kidney Damage ?| ?Without Kidney Damage+ --------+ --------+ +| ?>90 ?| ?Stage one ?| ? Normal ?+ ---+ ---+ -------+| ?60-89 ?| ?Stage two ?| ? Decreased GFR ? + --+ --+ ------+| ?30-59 ?| ?Stage three ?| ? Stage three ? + --+ --+ ------+| ?15-29 ?| ?Stage four ? | ? Stage four ?+ ---+ ---+ -------+| ?<15 (or dialysis) ? ?| ?Stage five ? | ? Stage five ?+ ---+ ---+ -------+ *Each stage assumes the associated GFR level has been in effect for at least three months. ?Stages 1 to 5, with or without kidney disease, indicate chronic kidney disease. Notes: Determination of stages one and two (with eGFR >59mL/min/1.73 m2) requires estimation of kidney damage for at least three months as defined by structural or functional abnormalities of the kidney, manifested by either:Pathological abnormalities or Markers of kidney damage (including abnormalities in the composition of the blood or urine or abnormalities in imaging tests). Lab Interpretation Abnormal (test code = 65176-0) [facility] 12[facility]13:17 Test Item Value Reference Range Interpretation Comments MAGNESIUM (test code = 3617050243) 1.8 mg/dL 1.7-2.4 Lab Interpretation (test code = Normal 91771-1) [facility] GLUCOSE (AUTOMATED)2021-02-17 02:33:14 Test Item Value Reference Range Interpretation Comments POCT GLU (test code = 8805119281) 177 mg/dL 70-110 H Lab Interpretation (test code = Abnormal 78757-4) [facility] GLUCOSE (AUTOMATED)2021-02-16 23:42:03 Test Item Value Reference Range Interpretation Comments POCT GLU (test code = 9364376577) 134 mg/dL 70-110 H Lab Interpretation (test code = Abnormal 49445-5) [facility] [id number] 21:20:24 Test Item Value Reference Range Interpretation Comments NT-proBNP (test code 649 pg/mL See_Comment H [Autom ated = 3805230982) message] The system which generated this result transmitted reference range : <=450. The reference range was not used to interpret this result as normal/abnormal . XAVIER (test code = XAVIER) Biotin has been reported to cause a negative bias, interpret results relative to patient's use of biotin. Lab Interpretation Abnormal (test code = 35928-3) [facility] 19:05:57 Test Item Value Reference Range Interpretation Comments POCT GLU (test code = 4686023748) 207 mg/dL 70-110 H Lab Interpretation (test code = Abnormal 24207-9) [facility] WITH [id number] 10:41:15 Test Item Value Reference Range Interpretation Comments WBC (test code = See_Comment [Automated 6690-2) message] The sy stem which generated this result transmitted reference range : 4.30 - 11.10 10*3/?L. The reference range was not used to interpret this result as normal/abnormal . RBC (test code = See_Comment [Automated 789-8) message] The sy stem which generated this result transmitted reference range : 3.93 - 5.25 10*6/?L. The reference range was not used to interpret this result as normal/abnormal . HGB (test code = 12.2 g/dL 11.6-15.0 718-7) HCT (test code = 39.5 % 35.7-45.2 4544-3) MCV (test code = 88.4 fL 80.6-95.5 787-2) MCH (test code = 27.3 pg 25.9-32.8 785-6) MCHC (test code = 30.9 g/dL 31.6-35.1 L 786-4) RDW-SD (test code = 49.7 fL 39.0-49.9 82671-9) RDW-CV (test code = 15.5 % 12.0-15.5 788-0) PLT (test code = See_Comment [Automated 777-3) message] The sy stem which generated this result transmitted reference range : 166 - 358 10*3/ ?L. The reference r bill was not used to interpret this result as normal/abnormal . MPV (test code = 11.3 fL 9.5-12.9 86124-1) NRBC/100 WBC (test See_Comment [Automat ed code = 8673289321) message] The system which generated this result transmitted reference range : 0.0 - 10.0 /100 WBCs. The refer ence range was not u sed to interpret th is result as normal/abnormal . NRBC x10^3 (test code <0.01 See_Comment [Auto mated = 4000013825) message] The s ystem which generated this result transmitted reference range : 10*3/?L. The reference range was not used to interpret this result as normal/abnormal . GRAN MAT (NEUT) % 76.3 % (test code = 770-8) IMM GRAN % (test code 0.50 % = 2493661642) LYMPH % (test code = 14.3 % 736-9) MONO % (test code = 6.6 % 5905-5) EOS % (test code = 1.7 % 713-8) BASO % (test code = 0.6 % 706-2) GRAN MAT x10^3(ANC) 4.98 10*3/uL 1.88-7.09 (test code = 3225724394) IMM GRAN x10^3 (test 0.03 10*3/uL 0.00-0.06 code = 5136071443) LYMPH x10^3 (test code 0.93 10*3/uL 1.32-3.29 L = 731-0) MONO x10^3 (test code 0.43 10*3/uL 0.33-0.92 = 742-7) EOS x10^3 (test code = 0.11 10*3/uL 0.03-0.39 711-2) BASO x10^3 (test code 0.04 10*3/uL 0.01-0.07 = 704-7) Lab Interpretation Abnormal (test code = 85354-1) [facility] METABOLIC PANEL (NA, K, CL, CO2, GLUCOSE, BUN, CREATININE, CA)2021-02-16 10:34:13 Test Item Value Reference Range Interpretation Comments NA (test code = 143 mmol/L 135-145 3898601785) K (test code = 3.9 mmol/L 3.5-5.0 6755695437) CL (test code = 111 mmol/L 98-108 H 7187660117) CO2 TOTAL (test code = 25 mmol/L 23-31 7869287920) AGAP (test code = 2-16 3495998365) BUN (test code = 55 mg/dL 7-23 H 6987891595) GLUCOSE (test code = 167 mg/dL 70-110 H 3379802776) CREATININE (test code = 2.65 mg/dL 0.50-1.04 H 1542612505) CALCIUM (test code = 9.4 mg/dL 8.6-10.6 1594902478) eGFR (test code = mL/min/1.73m2 5475342990) XAVIER (test code = XAVIER) Association of Glomerular Filtration Rate (GFR) and Staging of Kidney Disease* + --+ --+ ------+| GFR (mL/min/1.73 m2) ?| With Kidney Damage ?| ?Without Kidney Damage+ --------+ --------+ +| ?>90 ?| ?Stage one ?| ? Normal ?+ ---+ ---+ -------+| ?60-89 ?| ?Stage two ?| ? Decreased GFR ? + --+ --+ ------+| ?30-59 ?| ?Stage three ?| ? Stage three ? + --+ --+ ------+| ?15-29 ?| ?Stage four ? | ? Stage four ?+ ---+ ---+ -------+| ?<15 (or dialysis) ? ?| ?Stage five ? | ? Stage five ?+ ---+ ---+ -------+ *Each stage assumes the associated GFR level has been in effect for at least three months. ?Stages 1 to 5, with or without kidney disease, indicate chronic kidney disease. Notes: Determination of stages one and two (with eGFR >59mL/min/1.73 m2) requires estimation of kidney damage for at least three months as defined by structural or functional abnormalities of the kidney, manifested by either:Pathological abnormalities or Markers of kidney damage (including abnormalities in the composition of the blood or urine or abnormalities in imaging tests). Lab Interpretation Abnormal (test code = 86281-2) [facility] 10:34:13 Test Item Value Reference Range Interpretation Comments MAGNESIUM (test code = 3798801922) 1.8 mg/dL 1.7-2.4 Lab Interpretation (test code = Normal 43991-6) [facility] 03:25:36 Test Item Value Reference Range Interpretation Comments POCT GLU (test code = 5866301321) 248 mg/dL 70-110 H Lab Interpretation (test code = Abnormal 95003-5) [facility] GLUCOSE (AUTOMATED)2021-02-15 23:49:08 Test Item Value Reference Range Interpretation Comments POCT GLU (test code = 4181517926) 150 mg/dL 70-110 H Lab Interpretation (test code = Abnormal 80676-1) [facility] GLUCOSE (AUTOMATED)2021-02-15 18:03:14 Test Item Value Reference Range Interpretation Comments POCT GLU (test code = 2011254629) 149 mg/dL 70-110 H Lab Interpretation (test code = Abnormal 04224-8) [facility] GLUCOSE (AUTOMATED)2021-02-15 13:41:09 Test Item Value Reference Range Interpretation Comments POCT GLU (test code = 1571764971) 173 mg/dL 70-110 H Lab Interpretation (test code = Abnormal 23995-9) [facility] 10:46:22 Test Item Value Reference Range Interpretation Comments MAGNESIUM (test code = 9651236173) 2.0 mg/dL 1.7-2.4 Lab Interpretation (test code = Normal 10141-1) [facility] METABOLIC PANEL (NA, K, CL, CO2, GLUCOSE, BUN, CREATININE, CA)2021-02-15 10:46:21 Test Item Value Reference Range Interpretation Comments NA (test code = 142 mmol/L 135-145 8517269227) K (test code = 4.5 mmol/L 3.5-5.0 Slight 4676076810) hemolysis CL (test code = 112 mmol/L 98-108 H 8348813609) CO2 TOTAL (test code 23 mmol/L 23-31 = 5566639306) AGAP (test code = 2-16 1108888981) BUN (test code = 54 mg/dL 7-23 H Slight 0736059819) hemolysis GLUCOSE (test code = 139 mg/dL 70-110 H 1012723149) CREATININE (test code 2.45 mg/dL 0.50-1.04 H = 4697157082) CALCIUM (test code = 9.3 mg/dL 8.6-10.6 4354372514) eGFR (test code = mL/min/1.73m2 4281524507) XAVIER (test code = XAVIER) Association of Glomerular Filtration Rate (GFR) and Staging of Kidney Disease* + -----+ --------+ +| GFR (mL/min/1.73 m2) ?| With Kidney Damage ?| ?Without Kidney Damage+ +------- +---- --+| ?>90 ?| ?Stage one ?| ? Normal ?+ ------+ ---------+--------- +| ?60-89 ?| ?Stage two ?| ? Decreased GFR ? + -----+ --------+ +| ?30-59 ?| ?Stage three ?| ? Stage three ? + -----+ --------+ +| ?15-29 ?| ?Stage four ? | ? Stage four ?+ ------+ ---------+--------- +| ?<15 (or dialysis) ? ?| ?Stage five ? | ? Stage five ?+ ------+ ---------+--------- + *Each stage assumes the associated GFR level has been in effect for at least three months. ?Stages 1 to 5, with or without kidney disease, indicate chronic kidney disease. Notes: Determination of stages one and two (with eGFR >59mL/min/1.73 m2) requires estimation of kidney damage for at least three months as defined by structural or functional abnormalities of the kidney, manifested by either:Pathological abnormalities or Markers of kidney damage (including abnormalities in the composition of the blood or urine or abnormalities in imaging tests). Lab Interpretation Abnormal (test code = 90425-6) [facility] GLUCOSE (AUTOMATED)2021-02-15 03:12:22 Test Item Value Reference Range Interpretation Comments POCT GLU (test code = 7533414491) 234 mg/dL 70-110 H Lab Interpretation (test code = Abnormal 91102-5) [facility] GLUCOSE (AUTOMATED)2021-02-14 22:13:09 Test Item Value Reference Range Interpretation Comments POCT GLU (test code = 3612877222) 175 mg/dL 70-110 H Lab Interpretation (test code = Abnormal 93910-2) [facility] GLUCOSE (AUTOMATED)2021-02-14 18:04:53 Test Item Value Reference Range Interpretation Comments POCT GLU (test code = 9524565677) 235 mg/dL 70-110 H Lab Interpretation (test code = Abnormal 64371-4) [facility] 13:39:17 Test Item Value Reference Range Interpretation Comments POCT GLU (test code = 9604257797) 156 mg/dL 70-110 H Lab Interpretation (test code = Abnormal 57894-0) [facility] CAL[facility] [id number] 12:48:01 Test Item Value Reference Range Interpretation Comments PTH-INTACT (test code = 144.4 pg/mL 12.0-88.0 H 9088552701) PTH-CA Interpretation Furthe r clinical (test code = 4142293076) jessy a needed for interpretation. CALCIUM (test code = 9.2 mg/dL 8.6-10.6 2041113112) Lab Interpretation (test Abnormal code = 27863-5) [facility] Center[facility] (78036)(TOTAL CHOLESTEROL, TRIGLYCERIDES, HDL)2021-02-14 11:54:18 Test Item Value Reference Range Interpretation Comments CHOL (test code = 171 mg/dL 120-200 6738597522) HDL (test code = 38 mg/dL >50 L 7012264275) HDLC RATIO (test code = See_Comment [Au tomated message] 1385039908) The system Re-APP generated this result transmit tu reference range : <=4.5. The refe rence range was not u sed to interpret th is result as normal/abnormal . TRIG (test code = 136 mg/dL 30-170 7722903612) LDL CHOL (test code = 106 mg/dL See_Comment [Auto mated message] 53992-6) The system Re-APP generated this result transmit tu reference range : <=160. The refe rence range was not u sed to interpret th is result as normal/abnormal . VLDL (test code = 27 mg/dL 5-60 2423957190) Lab Interpretation (test Abnormal code = 75643-7) [facility] (A1C)2021-02-14 11:18:33 Test Item Value Reference Range Interpretation Comments HGB A1C (test code = 6.6 % 4.0-5.7 H 4548-4) XAVIER (test code = XAVIER) Reference RangesNormal: <5.7%Prediabetes: 5.7 - 6.4%Diabetes: > 6.5% Lab Interpretation (test Abnormal code = 99527-6) [facility] METABOLIC PANEL (NA, K, CL, CO2, GLUCOSE, BUN, CREATININE, CA)2021-02-14 11:08:31 Test Item Value Reference Range Interpretation Comments NA (test code = 142 mmol/L 135-145 6614408116) K (test code = 4.3 mmol/L 3.5-5.0 4389761223) CL (test code = 109 mmol/L 98-108 H 1802781308) CO2 TOTAL (test code = 24 mmol/L 23-31 3085041765) AGAP (test code = 2-16 7073659805) BUN (test code = 41 mg/dL 7-23 H [id number]) GLUCOSE (test code = 163 mg/dL 70-110 H 5850375414) CREATININE (test code = 2.27 mg/dL 0.50-1.04 H 2267117988) CALCIUM (test code = 9.2 mg/dL 8.6-10.6 9692409876) eGFR (test code = mL/min/1.73m2 5049137441) XAVIER (test code = XAVIER) Association of Glomerular Filtration Rate (GFR) and Staging of Kidney Disease* + --+ --+ ------+| GFR (mL/min/1.73 m2) ?| With Kidney Damage ?| ?Without Kidney Damage+ --------+ --------+ +| ?>90 ?| ?Stage one ?| ? Normal ?+ ---+ ---+ -------+| ?60-89 ?| ?Stage two ?| ? Decreased GFR ? + --+ --+ ------+| ?30-59 ?| ?Stage three ?| ? Stage three ? + --+ --+ ------+| ?15-29 ?| ?Stage four ? | ? Stage four ?+ ---+ ---+ -------+| ?<15 (or dialysis) ? ?| ?Stage five ? | ? Stage five ?+ ---+ ---+ -------+ *Each stage assumes the associated GFR level has been in effect for at least three months. ?Stages 1 to 5, with or without kidney disease, indicate chronic kidney disease. Notes: Determination of stages one and two (with eGFR >59mL/min/1.73 m2) requires estimation of kidney damage for at least three months as defined by structural or functional abnormalities of the kidney, manifested by either:Pathological abnormalities or Markers of kidney damage (including abnormalities in the composition of the blood or urine or abnormalities in imaging tests). Lab Interpretation Abnormal (test code = 47453-2) [facility] [id number] 06:24:13 Test Item Value Reference Interpretation Comments Range TROPONIN I (test 0.161 ng/mL See_Comment H [Automated code = 3912470150) message] The system which generated this result transmitted reference range : <=0.034. The reference range was not used to interpret this result as normal/abnormal . XAVIER (test code = Reference (Normal) XAVIER) Range (defined by the 99th percentile reference limit): <= 0.034 ng/mL Note: Cardiac troponin begins to rise 3-4 hours after the onset of ischemia. Repeat in 4-6 hours if the sample was drawn within 3-4 hours of the onset of the symptom and found normal. Diagnosis of myocardial injury is made with acute changes in cTn concentrations with at least one serial sample above the 99th percentile upper reference limit (URL), taken together with the patient's clinical presentation. Biotin has been reported to cause a negative bias, interpret results relative to patient's use of biotin. Lab Interpretation Abnormal (test code = 75036-0) [facility] [id number] 03:00:31 Test Item Value Reference Interpretation Comments Range TROPONIN I (test 0.184 ng/mL See_Comment H [Automated code = 6659625953) message] The system which generated this result transmitted reference range : <=0.034. The reference range was not used to interpret this result as normal/abnormal . XAVIER (test code = Reference (Normal) XAVIER) Range (defined by the 99th percentile reference limit): <= 0.034 ng/mL Note: Cardiac troponin begins to rise 3-4 hours after the onset of ischemia. Repeat in 4-6 hours if the sample was drawn within 3-4 hours of the onset of the symptom and found normal. Diagnosis of myocardial injury is made with acute changes in cTn concentrations with at least one serial sample above the 99th percentile upper reference limit (URL), taken together with the patient's clinical presentation. Biotin has been reported to cause a negative bias, interpret results relative to patient's use of biotin. Lab Interpretation Abnormal (test code = 56863-4) [facility] Test Item Value Reference Range Interpretation Comments MAGNESIUM (test code = 7043666178) 1.4 mg/dL 1.7-2.4 L Lab Interpretation (test code = Abnormal 18596-1) [facility] (15358)2021-02-14 02:48:48 Test Item Value Reference Range Interpretation Comments NA (test code = 141 mmol/L 135-145 7276470971) K (test code = 4.2 mmol/L 3.5-5.0 3420763131) CL (test code = 108 mmol/L 98-108 1822064141) CO2 TOTAL (test code = 24 mmol/L 23-31 9455708926) AGAP (test code = 2-16 9577144157) BUN (test code = 46 mg/dL 7-23 H 2141674567) GLUCOSE (test code = 174 mg/dL 70-110 H 4056129820) CREATININE (test code = 2.12 mg/dL 0.50-1.04 H 9605932935) TOTAL BILI (test code = 0.4 mg/dL 0.1-1.3 4407865612) CALCIUM (test code = 9.8 mg/dL 8.6-10.6 5077607738) T PROTEIN (test code = 6.9 g/dL 6.3-8.2 6987063268) ALBUMIN (test code = 4.2 g/dL 3.5-5.0 2885458387) ALK PHOS (test code = 118 U/L 34-122 3614104914) ALTv (test code = 27 U/L 5-35 1742-6) AST(SGOT) (test code = 31 U/L 13-40 4300475813) eGFR (test code = mL/min/1.73m2 2831626368) XAVIER (test code = XAVIER) Association of Glomerular Filtration Rate (GFR) and Staging of Kidney Disease* + --+ --+ ------+| GFR (mL/min/1.73 m2) ?| With Kidney Damage ?| ?Without Kidney Damage+ --------+ --------+ +| ?>90 ?| ?Stage one ?| ? Normal ?+ ---+ ---+ -------+| ?60-89 ?| ?Stage two ?| ? Decreased GFR ? + --+ --+ ------+| ?30-59 ?| ?Stage three ?| ? Stage three ? + --+ --+ ------+| ?15-29 ?| ?Stage four ? | ? Stage four ?+ ---+ ---+ -------+| ?<15 (or dialysis) ? ?| ?Stage five ? | ? Stage five ?+ ---+ ---+ -------+ *Each stage assumes the associated GFR level has been in effect for at least three months. ?Stages 1 to 5, with or without kidney disease, indicate chronic kidney disease. Notes: Determination of stages one and two (with eGFR >59mL/min/1.73 m2) requires estimation of kidney damage for at least three months as defined by structural or functional abnormalities of the kidney, manifested by either:Pathological abnormalities or Markers of kidney damage (including abnormalities in the composition of the blood or urine or abnormalities in imaging tests). Lab Interpretation Abnormal (test code = 80736-7) [facility] WITH [id number] 02:31:26 Test Item Value Reference Range Interpretation Comments WBC (test code = See_Comment [Automated 8290-2) message] The sy stem which generated this result transmitted reference range : 4.30 - 11.10 10*3/?L. The reference range was not used to interpret this result as normal/abnormal . RBC (test code = See_Comment [Automated 093-1) message] The sy stem which generated this result transmitted reference range : 3.93 - 5.25 10*6/?L. The reference range was not used to interpret this result as normal/abnormal . HGB (test code = 13.1 g/dL 11.6-15.0 718-7) HCT (test code = 41.3 % 35.7-45.2 4544-3) MCV (test code = 88.4 fL 80.6-95.5 787-2) MCH (test code = 28.1 pg 25.9-32.8 785-6) MCHC (test code = 31.7 g/dL 31.6-35.1 786-4) RDW-SD (test code = 49.2 fL 39.0-49.9 15672-2) RDW-CV (test code = 15.2 % 12.0-15.5 788-0) PLT (test code = See_Comment [Automated 777-3) message] The sy stem which generated this result transmitted reference range : 166 - 358 10*3/ ?L. The reference r bill was not used to interpret this result as normal/abnormal . MPV (test code = 11.4 fL 9.5-12.9 19571-9) NRBC/100 WBC (test See_Comment [Automat ed code = 1225910730) message] The system which generated this result transmitted reference range : 0.0 - 10.0 /100 WBCs. The refer ence range was not u sed to interpret th is result as normal/abnormal . NRBC x10^3 (test code <0.01 See_Comment [Auto mated = 0165720787) message] The s ystem which generated this result transmitted reference range : 10*3/?L. The reference range was not used to interpret this result as normal/abnormal . GRAN MAT (NEUT) % 75.8 % (test code = 770-8) IMM GRAN % (test code 0.40 % = 4720012985) LYMPH % (test code = 13.6 % 736-9) MONO % (test code = 7.4 % 5905-5) EOS % (test code = 2.1 % 713-8) BASO % (test code = 0.7 % 706-2) GRAN MAT x10^3(ANC) 5.75 10*3/uL 1.88-7.09 (test code = 9228299129) IMM GRAN x10^3 (test 0.03 10*3/uL 0.00-0.06 code = 6239863982) LYMPH x10^3 (test code 1.03 10*3/uL 1.32-3.29 L = 731-0) MONO x10^3 (test code 0.56 10*3/uL 0.33-0.92 = 742-7) EOS x10^3 (test code = 0.16 10*3/uL 0.03-0.39 711-2) BASO x10^3 (test code 0.05 10*3/uL 0.01-0.07 = 704-7) Lab Interpretation Abnormal (test code = 85068-3) [facility] LACTIC [id number] 01:49:53 Test Item Value Reference Range Interpretation Comments PH (test code = 7.32-7.42 3321712895) PCO2 ISATU (test code = See_Comment [Auto mated 9863985272) message] The sy stem which generated this result transmitted reference range : 41 - 51 mmHg. The reference range was not used to interpret this result as normal/abnormal . PO2 ISATU (test code = See_Comment [Autom ated 8766256039) message] The sy stem which generated this result transmitted reference range : 25 - 40 mmHg. The reference range was not used to interpret this result as normal/abnormal . HCO3 ISATU (test code = See_Comment [Auto mated 0792118245) message] The sy stem which generated this result transmitted reference range : 24 - 28 mEq/L. The reference range was not used to interpret this result as normal/abnormal . AC VBE(BEAKER) (test mEq/L code = 1402749274) THB ISATU (test code = 14.0 g/dL 12.0-16.0 2554508497) %O2HB ISATU (test code = 56.6 % 52.0-63.0 0398334162) %COHB ISATU (test code = 0.9 % 0.0-1.5 8371067938) %METHB ISATU (test code = 0.3 % 0.4-1.5 L 7592092792) VOL%O2 ISATU (test code = 11.1 % 6.0-12.0 5606260033) NA (test code = 143 mmol/L 135-145 9774223113) K+ (test code = 4.1 mmol/L 3.5-5.0 8573147081) AC CA IONZ (test code = 4.80 mg/dL 4.50-5.30 0278631227) GLUCOSE (test code = 177 mg/dL 70-110 H 0516097795) LACTIC ACID (test code 1.44 mmol/L 0.50-2.20 = 3331289822) Lab Interpretation Abnormal (test code = 51664-2) [facility]14 01:13:52 Test Item Value Reference Range Interpretation Comments POCT GLU (test code = 8512227911) 161 mg/dL 70-110 H Lab Interpretation (test code = Abnormal 90389-4) [facility]"
[2021-02-26 16:28] LABS: Absolute Lymphocytes (CBC) 1.4 K/uL (0.7-4.9); Hematocrit 40.8 % (36.0-45.0); Lymphocytes % 12.3 % (15.3-44.8); MPV 8.6 fL (7.6-11.3); RBC Red Blood Cell Count 4.76 M/uL (3.86-4.86)
[2021-02-26] MEDS ORDERED: NA CHLORIDE 0.9% 500 ML ONE (16:30)
[2021-02-26 16:34] LABS: Protime INR 1.02
[2021-02-26] MEDS ORDERED: PREGABALIN 150 MG CAP PO ONE (16:44)
[2021-02-26 16:58] LABS: ALT/SGPT 31 U/L (12-78); AST/SGOT 18 U/L (15-37); Albumin 3.5 g/dL (3.4-5.0); Alkaline Phosphatase 98 U/L (45-117); BUN Blood Urea Nitrogen 54 mg/dL (7-18); Bicarbonate 23 mmol/L (21-32); Bilirubin Direct 0.1 mg/dL (0-0.2); Bilirubin Total 0.4 mg/dL (0.2-1.0); Glucose Level 183 mg/dL (74-106); Magnesium 2.1 mg/dL (1.8-2.4); NT PRO-BNP 683 pg/mL (<450); Potassium 4.7 mmol/L (3.5-5.1); Protein, Total 7.7 g/dL (6.4-8.2); Sodium Level 140 mmol/L (136-145); Troponin (Emerg Dept Use Only) < 0.02 ng/mL (0.0-0.045)
--- NOTE | 2021-02-26 17:06 | RAD REPORT ---
EXAM DESCRIPTION: CT - Head Brain Wo Cont - 02/26/2021 5:01 pm CLINICAL HISTORY: HEADACHE Headache, drowsiness COMPARISON: No comparisons TECHNIQUE: All CT scans are performed using dose optimization technique as appropriate and may inclu de automated exposure control or mA/KV adjustment according to patient size. FINDINGS: No intracranial hemorrhage, hydrocephalus or extra-axial fluid collection.Moderate general ized brain atrophy is present with mild periventricular and deep white matter chronic microvascular i schemic changes.No areas of brain edema or evidence of midline shift. Mild fluid is seen in the left sphenoid sinus and right maxillary antrum. The paranasal sinuses and m astoids are otherwise clear. The calvarium is intact. IMPRESSION: No acute intracranial abnormality. Moderate brain atrophy.
--- NOTE | 2021-02-26 17:21 | EDPHYS ---
Physician Documentation [facility] Name: Lidya Strong Age: 75 yrs Sex: Female : 1945 Arrival Date: 02/26/2021 Time: 14:52 Bed 14 Private MD: ED Physician Stef Alarcon HPI: 02/26 16:23 This 75 yrs old Female presents to ER via EMS with complaints of High Blood Pressure. graham 16:23 This 75 yrs old Female presents to ER via EMS with complaints of High Blood graham Pressure. 16:23 The patient has elevated blood pressure and discovered this at home. Onset: The graham symptoms/episode began/occurred this morning, today. Modifying factors: The symptoms are aggravated by activity, The symptoms are alleviated by remaining still. Associated signs and symptoms: The patient has no apparent associated signs or symptoms. Severity of symptoms: At its worst the blood pressure was moderate, in the emergency department the blood pressure is unchanged. The patient has not experienced similar symptoms in the past. Historical: - Allergies: 15:54 Aspirin; ww - Home Meds: 15:54 Albuterol Inhl [Active]; allopurinol 300 mg Oral tab 1 tab once daily [Active]; ww amlodipine 10 mg tab 1 tab once daily [Active]; atorvastatin 10 mg oral tab 1 tab once daily [Active]; chlorthalidone 25 mg Oral tab 1 tab once daily [Active]; Coreg 25 mg Oral tab 1 tab 2 times per day [Active]; glimepiride 2 mg Oral tab BID [Active]; hydralazine 100 mg Oral tab 1 tab 3 times per day [Active]; losartan 50 mg oral tab 1 tab once daily [Active]; pregabalin 150 mg Oral cap daily [Active]; tramadol 50 mg Oral tab [Active]; - PMHx: 15:54 Diabetes mellitus; Headache; Hypertensive disorder; ww - PSHx: 15:54 Appendectomy; Total abdominal hysterectomy; back; total knee; shoulder; galbladder; ww - Immunization history:: Adult Immunizations Client reports receiving the 2nd dose of the Covid vaccine, Pneumococcal vaccine is up to date. - Social history:: Smoking status: Patient denies any tobacco usage or history of. ROS: 16:31 Constitutional: Negative for fever, chills, and weight loss, Eyes: Negative for injury, graham pain, redness, and discharge, ENT: Negative for injury, pain, and discharge, Neck: Negative for injury, pain, and swelling, Cardiovascular: Negative for chest pain, palpitations, and edema, Respiratory: Negative for shortness of breath, cough, wheezing, and pleuritic chest pain, Back: Negative for injury and pain, : Negative for injury, bleeding, discharge, and swelling, MS/Extremity: Negative for injury and deformity, Skin: Negative for injury, rash, and discoloration, Psych: Negative for depression, anxiety, suicide ideation, homicidal ideation, and hallucinations, Allergy/Immunology: Negative for hives, rash, and allergies, Endocrine: Negative for neck swelling, polydipsia, polyuria, polyphagia, and marked weight changes, Hematologic/Lymphatic: Negative for swollen nodes, abnormal bleeding, and unusual bruising. 16:31 Abdomen/GI: Positive for diarrhea. 16:31 Neuro: Positive for headache. Exam: 16:31 Constitutional: This is a well developed, well nourished patient who is awake, alert, graham and in no acute distress. Head/Face: Normocephalic, atraumatic. Eyes: Pupils equal round and reactive to light, extra-ocular motions intact. Lids and lashes normal. Conjunctiva and sclera are non-icteric and not injected. Cornea within normal limits. Periorbital areas with no swelling, redness, or edema. ENT: Nares patent. No nasal discharge, no septal abnormalities noted. Tympanic membranes are normal and external auditory canals are clear. Oropharynx with no redness, swelling, or masses, exudates, or evidence of obstruction, uvula midline. Mucous membranes moist. Neck: Trachea midline, no thyromegaly or masses palpated, and no cervical lymphadenopathy. Supple, full range of motion without nuchal rigidity, or vertebral point tenderness. No Meningismus. Chest/axilla: Normal chest wall appearance and motion. Nontender with no deformity. No lesions are appreciated. Cardiovascular: Regular rate and rhythm with a normal S1 and S2. No gallops, murmurs, or rubs. Normal PMI, no JVD. No pulse deficits. Respiratory: Lungs have equal breath sounds bilaterally, clear to auscultation and percussion. No rales, rhonchi or wheezes noted. No increased work of breathing, no retractions or nasal flaring. Abdomen/GI: Soft, non-tender, with normal bowel sounds. No distension or tympany. No guarding or rebound. No evidence of tenderness throughout. Back: No spinal tenderness. No costovertebral tenderness. Full range of motion. Female : Normal external genitalia. Skin: Warm, dry with normal turgor. Normal color with no rashes, no lesions, and no evidence of cellulitis. MS/ Extremity: Pulses equal, no cyanosis. Neurovascular intact. Full, normal range of motion. Neuro: Awake and alert, GCS 15, oriented to person, place, time, and situation. Cranial nerves II-XII grossly intact. Motor strength 5/5 in all extremities. Sensory grossly intact. Cerebellar exam normal. Normal gait. Psych: Awake, alert, with orientation to person, place and time. Behavior, mood, and affect are within normal limits. 16:31 Musculoskeletal/extremity: DVT Exam: No signs of deep vein thrombosis. no pain, no swelling, no tenderness, negative Homans' sign noted on exam, no appreciated bluish discoloration, no erythema, no increased warmth. 16:45 ECG was reviewed by the Attending Physician. [facility] Vital Signs: 15:40 BP 188 / 77; Pulse 74; Resp 20; Temp 98.9(O); Pulse Ox 100% on R/A; Weight 99.79 kg; ww Height 5 ft. 7 in. (170.18 cm); Pain 0/10; 18:58 BP 186 / 83 Supine; Pulse 79; Resp 18; Pulse Ox 99% on R/A; ww 18:58 BP 202 / 82 Sitting; Pulse 83; Resp 18; Pulse Ox 99% on R/A; ww 18:58 BP 172 / 97 Standing; Pulse 87; Pulse Ox 100% ; ww 21:33 BP 168 / 81; Pulse 76; Resp 18; Temp 97.2; Pulse Ox 100% 0 lpm ; ww 15:40 Body Mass Index 34.46 (99.79 kg, 170.18 cm) NIH Stroke Scale Scores: 16:31 NIHSS Score: 0 [facility] Arianna Coma Score: 16:35 Eye Response: spontaneous(4). Verbal Response: oriented(5). Motor Response: obeys [facility] commands(6). Total: 15. MDM: 15:12 Patient medically screened. jr8 16:35 Differential diagnosis: cluster headache, cerebral vascular accident, Nonspecific abd graham pain, gastritis, cholecystitis, hypertensive crisis, Malignant HTN, CVA, intracerebral hemorrhage, hyponatremia, migraine, sinusitis, temporal arteritis, vasomotor headache. Data reviewed: vital signs, nurses notes, lab test result(s), EKG, radiologic studies, CT scan, plain films. Data interpreted: quality assurance monitor chassis: rate is 74 beats/min, rhythm is regular, Pulse oximetry: on room air is 100 %. Test interpretation: by ED physician or midlevel provider: ECG, plain radiologic studies. Counseling: I had a detailed discussion with the patient and/or guardian regarding: the presence of at least one elevated blood pressure reading (>120/80) during this emergency department visit, lab results, the need for outpatient follow up, for definitive care, a order filler, a family practitioner. 02/26 15:42 Order name: Basic Metabolic Panel; Complete Time: 17:10 [facility] 02/26 15:42 Order name: CBC with Diff; Complete Time: 17:10 [facility] 02/26 15:42 Order name: LFT's; Complete Time: 17:10 [facility] 02/26 15:42 Order name: Magnesium; Complete Time: 17:10 [facility] 02/26 15:42 Order name: NT PRO-BNP; Complete Time: 17:10 [facility] 02/26 15:42 Order name: PT-INR; Complete Time: 17:10 [facility] 02/26 15:42 Order name: Troponin (emerg Dept Use Only); Complete Time: 17:10 [facility] 02/26 15:42 Order name: XRAY Chest (1 view); Complete Time: 18:42 [facility] 02/26 15:42 Order name: EKG; Complete Time: 15:43 [facility] 02/26 16:23 Order name: CT Head Brain wo Cont; Complete Time: 17:10 [facility] 02/26 17:57 Order name: Urine Culture; Complete Time: 07:58 [facility] 02/26 20:44 Order name: Urine Dipstick-Ancillary; Complete Time: 07:58 [facility] 02/26 15:42 Order name: Cardiac monitoring; Complete Time: 16:24 [facility] 02/26 15:42 Order name: EKG - Nurse/Tech; Complete Time: 16:41 [facility] 02/26 15:42 Order name: IV Saline Lock; Complete Time: 16:24 [facility] 02/26 15:42 Order name: Labs collected and sent; Complete Time: 16:24 [facility] 02/26 15:42 Order name: O2 Per Protocol; Complete Time: 16:24 [facility] 02/26 15:42 Order name: O2 Sat Monitoring; Complete Time: 16:24 [facility] 02/26 15:42 Order name: Urine Dipstick-Ancillary (obtain specimen); Complete Time: 20:46 [facility] 02/26 17:19 Order name: PO challenge; Complete Time: 18:59 [facility] 02/26 17:19 Order name: Orthostatics; Complete Time: 18:59 [facility] 02/26 17:57 Order name: Misc. Order: get cath ua; Complete Time: 21:04 graham EC:45 Rate is 73 beats/min. Rhythm is regular. QRS Amenia is Normal. ND interval is normal. QRS graham interval is normal. QT interval is normal. No Q waves. T waves are Normal. No ST changes noted. Clinical impression: NSR w/ Non-specific ST/T Changes and No evidence of ischemia. Interpreted by me. Reviewed by me. Administered Medications: 16:41 Drug: NS 0.9% 500 ml Route: IV; Rate: bolus; Site: right antecubital; ww 16:45 Drug: Lyrica (pregabalin) 150 mg Route: PO; ww Disposition Summary: 02/26/21 17:20 Discharge Ordered Location: Home graham Problem: new graham Symptoms: have improved graham Condition: Stable graham Diagnosis - Diarrhea, unspecified graham - Essential (primary) hypertension graham - Unspecified kidney failure - chronic graham - Type 2 diabetes mellitus with hyperglycemia graham Followup: graham - With: Private Physician - When: 2 - 3 days - Reason: Recheck today's complaints, Continuance of care, Re-evaluation by your physician Followup: graham - With: - When: 2 - 3 days - Reason: Recheck today's complaints, Continuance of care, Re-evaluation by your physician Discharge Instructions: - Discharge Summary Sheet graham - Food Choices to Help Relieve Diarrhea, Adult graham - Diarrhea, Adult graham - Hypertension, Adult graham - Hypertension, Adult, Tmjk-[id number] graham - Diabetic Nephropathy graham - Diarrhea, Adult, Fvsl-[id number] graham - How to Take Your Blood Pressure, Vufu-ok-Wewa graham - Managing Your Hypertension graham - Chronic Kidney Disease, Adult, Cugg-kc-Ykyn graham - Chronic Kidney Disease, Adult graham Forms: - Medication Reconciliation Form graham - Thank You Letter graham - Antibiotic Education graham - Prescription Opioid Use [facility] Prescriptions: - Zofran 4 mg Oral Tablet - take 1 tablet by ORAL route every 12 hours As needed; 12 tablet; Refills: 0, [facility] Product Selection Permitted NIH Stroke Scale - NIH Stroke Score Date: 02/26/2021 Time: 16:31 Total Score = 0 1a. Level of Consciousness (LOC) - 0(Alert) 1b. Level of Consciousness (LOC) (Month \T\ Age) - 0(Both) 1c. LOC Commands (Open \T\ Closes Eyes/[employer]) - 0(Both) 2. Best Gaze (Lateral Gaze Paresis) - 0(Normal) 3. Visual Field Loss - 0(No visual loss) 4. Facial Palsy - 0(Normal) 5a. Left Arm: Motor (10-second hold) - 0(No drift) 5b. Right Arm: Motor (10-second hold) - 0(No drift) 6a. Left Leg: Motor (5-second hold - always test supine) - 0(No drift) 6b. Right Leg: Motor (5-second hold - always test supine) - 0(No drift) 7. Limb Ataxia (finger/nose \T\ heel/jennings - test with eyes open) - 0(Absent) 8. Sensory Loss (pinprick arms/legs/face) - 0(Normal) 9. Best Language: Aphasia (description/naming/reading) - 0(No aphasia) 10. Dysarthria (speech clarity - read or repeat words) - 0(Normal) 11. Extinction and Inattention (visual/tactile/auditory/spatial/personal) - 0(No abnormality) Initials: [facility] Signatures: Dispatcher [employer] Stef Holden MD MD cha Williams, Irene, RN RN iw Roszak, Josh, PA PA jr8 Leal, Jahala, RN RN jl7 Candy Gan RN RN ww Corrections: (The following items were deleted from the chart) 15:39 15:07 Allergies: No Known Allergies; [facility] 1539 15:07 PMHx: Cerebral palsy; 15:39 15:07 PMHx: Anxiety; 15:39 15:07 PMHx: Epilepsy; 15:39 15:07 PMHx: GERD; 15:39 15: PMHx: Down Syndrome; jl7 15:07 Immunization history: Adult Immunizations unknown, 7 15: Social history: Smoking status: Patient denies any tobacco usage or history of. jl7
--- NOTE | 2021-02-26 17:21 | ER ---
Nurse's Notes [facility] Name: Lidya Strong Age: 75 yrs Sex: Female : 1945 Arrival Date: 02/26/2021 Time: 14:52 Bed 14 Private MD: Diagnosis: Diarrhea, unspecified;Essential (primary) hypertension;Unspecified kidney failure-chronic;Type 2 diabetes mellitus with hyperglycemia Presentation: 02/26 15:40 Chief complaint: Patient states: Blood pressure was 220/110 this morning and called [facility]. Patient did not take morning blood pressure medications. States she has a mild headache. Daughter at bedside stated that she was recently in the hospital for elevated blood pressure. Coronavirus screen: Vaccine status: Patient reports receiving the 2nd dose of the covid vaccine. Client denies travel out of the [place] in the last 14 days. Ebola Screen: Patient negative for fever greater than or equal to 101.5 degrees Fahrenheit, and additional compatible Ebola Virus Disease symptoms Patient denies exposure to infectious person. Patient denies travel to an Ebola-affected area in the 21 days before illness onset. Initial Sepsis Screen: Does the patient meet any 2 criteria? No. Patient's initial sepsis screen is negative. Does the patient have a suspected source of infection? No. Patient's initial sepsis screen is negative. Risk Assessment: Do you want to hurt yourself or someone else? Patient reports no desire to harm self or others. Onset of symptoms was February 26, 2021. 15:40 Method Of Arrival: EMS: [facility] 15:40 Acuity: OCTAVIO 3 ww Triage Assessment: 15:54 General: Appears comfortable, well groomed, well developed, Behavior is calm, ww cooperative, appropriate for age. Pain: Complains of pain in face. EENT: No deficits noted. No signs and/or symptoms were reported regarding the EENT system. Neuro: No deficits noted. Level of Consciousness is awake, alert, obeys commands, Oriented to person, place, time, situation, Appropriate for age Moves all extremities. Gait is steady, Speech is normal. Cardiovascular: Reports elevated blood pressure Capillary refill < 3 seconds Patient's skin is warm and dry. Respiratory: Airway is patent Respiratory effort is even, unlabored, Respiratory pattern is regular, symmetrical. GI: No deficits noted. No signs and/or symptoms were reported involving the gastrointestinal system. : No deficits noted. No signs and/or symptoms were reported regarding the genitourinary system. Derm: No deficits noted. No signs and/or symptoms reported regarding the dermatologic system. Skin is intact, Skin is pink, warm \\T\\ dry. Skin temperature is. Musculoskeletal: No deficits noted. No signs and/or symptoms reported regarding the musculoskeletal system. Historical: - Allergies: 15:54 Aspirin; ww - Home Meds: 15:54 Albuterol Inhl [Active]; allopurinol 300 mg Oral tab 1 tab once daily [Active]; ww amlodipine 10 mg tab 1 tab once daily [Active]; atorvastatin 10 mg oral tab 1 tab once daily [Active]; chlorthalidone 25 mg Oral tab 1 tab once daily [Active]; Coreg 25 mg Oral tab 1 tab 2 times per day [Active]; glimepiride 2 mg Oral tab BID [Active]; hydralazine 100 mg Oral tab 1 tab 3 times per day [Active]; losartan 50 mg oral tab 1 tab once daily [Active]; pregabalin 150 mg Oral cap daily [Active]; tramadol 50 mg Oral tab [Active]; - PMHx: 15:54 Diabetes mellitus; Headache; Hypertensive disorder; ww - PSHx: 15:54 Appendectomy; Total abdominal hysterectomy; back; total knee; shoulder; galbladder; ww - Immunization history:: Adult Immunizations Client reports receiving the 2nd dose of the Covid vaccine, Pneumococcal vaccine is up to date. - Social history:: Smoking status: Patient denies any tobacco usage or history of. Screenin:02 Abuse screen: Denies threats or abuse. Denies injuries from another. Nutritional ww screening: No deficits noted. Tuberculosis screening: No symptoms or risk factors identified. Fall Risk None identified. Assessment: 17:30 Reassessment: Patient appears in no apparent distress at this time. No changes from ww previously documented assessment. Patient and/or family updated on plan of care and expected duration. Pain level reassessed. Patient is alert, oriented x 3, equal unlabored respirations, skin warm/dry/pink. 18:58 Reassessment: Patient appears in no apparent distress at this time. No changes from ww previously documented assessment. Patient and/or family updated on plan of care and expected duration. Pain level reassessed. Patient is alert, oriented x 3, equal unlabored respirations, skin warm/dry/pink. Vital Signs: 15:40 BP 188 / 77; Pulse 74; Resp 20; Temp 98.9(O); Pulse Ox 100% on R/A; Weight 99.79 kg; ww Height 5 ft. 7 in. (170.18 cm); Pain 0/10; 18:58 BP 186 / 83 Supine; Pulse 79; Resp 18; Pulse Ox 99% on R/A; ww 18:58 BP 202 / 82 Sitting; Pulse 83; Resp 18; Pulse Ox 99% on R/A; ww 18:58 BP 172 / 97 Standing; Pulse 87; Pulse Ox 100% ; ww 21:33 BP 168 / 81; Pulse 76; Resp 18; Temp 97.2; Pulse Ox 100% 0 lpm ; ww 15:40 Body Mass Index 34.46 (99.79 kg, 170.18 cm) Arianna Coma Score: 16:35 Eye Response: spontaneous(4). Verbal Response: oriented(5). Motor Response: obeys graham commands(6). Total: 15. NIH Stroke Scale Scores: 16:31 NIHSS Score: 0 [facility] ED Course: 14:52 Patient arrived in ED. bd 15:07 Triage completed. jl7 15:07 Arm band placed on right wrist. jl7 15:10 Davon Mclean PA is PHCP. jr8 15:10 Stef Alarcon MD is Attending Physician. jr8 15:16 Melissa Ziegler RN is Primary Nurse. jh6 15:42 Stef Alarcon MD is Attending Physician. graham 16:02 Patient has correct armband on for positive identification. Bed in low position. Call ww light in reach. Side rails up X2. Adult w/ patient. 16:25 assisted to restroom where patient had a loose bowel movement. ww 16:25 Maintain EMS IV. Dressing intact. Good blood return noted. Site clean \\T\\ dry. Gauge \\T\\ ww site: 20g right ac. 17:00 CT Head Brain wo Cont In Process Unspecified. EDMS 17:19 Romeo Quiros MD is Referral Physician. [facility] 18:00 XRAY Chest (1 view) In Process Unspecified. EDMS 19:15 Primary Nurse role handed off by Melissa Ziegler, DOMINGO mw2 20:36 Wood, Candy, RN is Primary Nurse. ww 21:34 No provider procedures requiring assistance completed. IV discontinued. ww Administered Medications: 16:41 Drug: NS 0.9% 500 ml Route: IV; Rate: bolus; Site: right antecubital; ww 16:45 Drug: Lyrica (pregabalin) 150 mg Route: PO; Outcome: 17:20 Discharge ordered by . [facility] 21:34 Discharged to home via wheelchair. ww 21:34 Condition: stable 21:34 Instructed on discharge instructions, follow up and referral plans. 21:48 Patient left the ED. mw2 NIH Stroke Scale - NIH Stroke Score Date: 02/26/2021 Time: 16:31 Total Score = 0 1a. Level of Consciousness (LOC) - 0(Alert) 1b. Level of Consciousness (LOC) (Month \\T\\ Age) - 0(Both) 1c. LOC Commands (Open \\T\\ Closes Eyes/Cardio Clinician) - 0(Both) 2. Best Gaze (Lateral Gaze Paresis) - 0(Normal) 3. Visual Field Loss - 0(No visual loss) 4. Facial Palsy - 0(Normal) 5a. Left Arm: Motor (10-second hold) - 0(No drift) 5b. Right Arm: Motor (10-second hold) - 0(No drift) 6a. Left Leg: Motor (5-second hold - always test supine) - 0(No drift) 6b. Right Leg: Motor (5-second hold - always test supine) - 0(No drift) 7. Limb Ataxia (finger/nose \\T\\ heel/jennings - test with eyes open) - 0(Absent) 8. Sensory Loss (pinprick arms/legs/face) - 0(Normal) 9. Best Language: Aphasia (description/naming/reading) - 0(No aphasia) 10. Dysarthria (speech clarity - read or repeat words) - 0(Normal) 11. Extinction and Inattention (visual/tactile/auditory/spatial/personal) - 0(No abnormality) Initials: [facility] Addendum: 03/03/2021 09:05 Addendum: Culture Results: Positive urine culture. Phone call Attempt #1 Spoke ss with patient who states that she does not have any urinary symptoms at this time, but verbalizes she is very upset that her kids want to "cut her off of her Lyrica." I spoke to her and told her that it would be best to call her PCP as soon as their office opens on Friday and discuss that situation with him/her. Signatures: Dispatcher [employer] EDViviane Zendejas Corey, MD MD cha Smirch, Shelby, RN RN Davon Benoit PA PA jr8 Leal, Jahala, RN RN jl7 Isela Swanson 2 Melissa Ziegler RN RN 6 Candy Gan RN RN ww Corrections: (The following items were deleted from the chart) 02/26 15:04 Chief complaint: EMS states: Vomited dark blood x 1 [facility] 15:04 Coronavirus screen: At this time, the client does not indicate any iw symptoms associated with coronavirus-19. 15: Ebola Screen: No symptoms or risks identified at this time. 15:04 Initial Sepsis Screen: Does the patient meet any 2 criteria? No. iw Patient's initial sepsis screen is negative. Does the patient have a suspected source of infection? No. Patient's initial sepsis screen is negative. 15:04 Risk Assessment: Do you want to hurt yourself or someone else? Patient iw reports no desire to harm self or others. 15: Onset of symptoms is unknown. 15:04 Care prior to arrival: None. 15:04 Method Of Arrival: EMS: [facility] 15:04 BP 111 / 66; Pulse 82bpm; Resp 15bpm; Pulse Ox 98% RA; Temp 99.1F; 15:04 Acuity: OCTAVIO 3 15:07 Allergies: No Known Allergies; 15: PMHx: Cerebral palsy; 15: PMHx: Anxiety; 15: PMHx: Epilepsy; 15:07 PMHx: GERD; 15:07 PMHx: Down Syndrome; 15:07 Immunization history: Adult Immunizations unknown, jl7 iw 15:39 15:07 Social history: Smoking status: Patient denies any tobacco usage or iw history of. jl7
--- NOTE | 2021-02-26 18:06 | RAD REPORT ---
EXAM DESCRIPTION: RAD - Chest Single View - 02/26/2021 6:00 pm CLINICAL HISTORY: COUGH Chest pain. COMPARISON: No comparisons FINDINGS: Portable technique limits examination quality. Interstitial lung markings are mildly prominent, particularly on the right. This may indicate a viral infection. The heart is normal in size. No displaced fractures.
[2021-02-26 20:44] LABS: Urine Blood Negative (Negative); Urine Glucose Trace (Negative); Urine Protein 3+ (Negative); Urine Specific Gravity 1.025 (1.005-1.030); Urine pH 5.5 (5.0-7.0)
[2021-02-26 21:56] VITALS: O2SAT 100
[2021-02-26 22:01] VITALS: BP 168/81; TEMP 97.2
--- NOTE | 2021-02-27 11:17 | EKG ---
Test Date: 2021-02-26 Test Time: 16:37:47 Take Off Man: MIRYAM Abraham MEASUREMENT RESULTS: Intervals: Rate: 73 WI: 132 QRSD: 82 QT: 394 QTc: 434 [place]: P: 83 WI: 132 QRS: 26 T: 38 INTERPRETIVE STATEMENTS: Normal sinus rhythm Cannot rule out Anteroseptal infarct, age undetermined Abnormal ECG No previous ECG available for comparison Electronically Signed On 02-27-21 11:14:14 SENIOR INSTRUCTOR by Romeo Quiros
== END 2021-02-26 21:48 | disposition home or self-care (01) ==
LOC: ER 13:42
DX: I10 Essential (primary) hypertension (principal); E11.65 Type 2 diabetes mellitus with hyperglycemia; N18.9 Chronic kidney disease, unspecified; Z88.6 Allergy status to analgesic agent
CPT/HCPCS: 93005; 87088; 85025; 87086; 80048; 36415; 83735; 85610; 80076; 87077; 87186; 81003; 84484; 83880; 70450; 71045; 99284; J7040